=== PATIENT | female | born 1940 | race Caucasian/White ===

== ENCOUNTER 2021-05-08 15:50 | Inpatient (IN) | payer MEDICARE, OTHER, SELFPAY ==
[2021-05-08] VITALS (12 sets, daily range): BP systolic 108–165; BP diastolic 54–78; PULSE 74–109; RESP 16–24; TEMP 36.2; O2SAT 96–100; BMI 30.7; BMI 30.2
[2021-05-08 17:10] LABS: Add Manual Diff / Slide Review NO; Basophils Absolute Auto 0 /uL (0-100); Basophils Percent Auto 0.5 % (0-2); Eosinophils Absolute Auto 100 /uL (0-450); Eosinophils Percent Auto 0.5 % (2-4); Hematocrit 32.8 % (36-46); Hemoglobin 10.7 g/dL (12.0-16.0); Lymphocytes Absolute Auto 1000 /uL (1100-4500); Lymphocytes Percent Auto 10.7 % (25-40); Mean Corpuscular HGB Conc 32.7 % (30-36); Mean Corpuscular Hemoglobin 29.8 PG (26-34); Monocytes Absolute Auto 200 /uL (0-900); Monocytes Percent Auto 2.5 % (3-14); Neutrophils Absolute Auto 8100 /uL (1500-7000); Neutrophils Percent Auto 85.8 % (50-75); Platelet Count 285 X10^3/uL (150-400); Red Cell Distribution Width 14.1 % (11.6-14.8); White Blood Cell Count 9.5 X10^3/uL (4.5-11.0)
[2021-05-08 17:23] LABS: Alanine Aminotransferase 14 IU/L (<35); Albumin 3.5 g/dL (3.5-5.0); Albumin Globulin Ratio 1.3 (1.0-2.8); Alkaline Phosphatase 62 U/L (38-126); Aspartate Aminotransferase 22 IU/L (14-36); BUN Creatinine Ratio 45.2 (6-22); Bilirubin Total 0.3 mg/dL (0.2-1.3); Blood Urea Nitrogen 33 mg/dL (7-17); Calcium 8.7 mg/dL (8.4-10.2); Carbon Dioxide 26 mmol/L (22-32); Chloride 107 mmol/L (98-107); Estimated Glomerular Filt Rate > 60.0 mL/min (>60); Globulin 2.6 g/dL (1.7-4.1); Glucose 150 mg/dL (80-110); HEMOLYSIS < 15 (0-50); Potassium 4.6 mmol/L (3.4-5.1); Sodium 138 mmol/L (137-145); Total Protein 6.1 g/dL (6.3-8.2)
--- NOTE | 2021-05-08 20:12 | ED.GIBLEED ---
HPI - GI Bleed General Chief complaint: GI Bleed Stated complaint: DIARRHEA STOMACH PAIN Time Seen by Provider: 05/08/21 20:12 Source: patient Mode of arrival: Ambulatory History of Present Illness HPI Narrative: 81-year-old woman with history of paroxysmal atrial fibrillation anticoagulated on warfarin, hypertension, hypoglycemia history of a Zen fundoplication no prior history of GI bleeding presents complaining of nausea with no emesis(unable to vomit after the Zen procedure) with black tar E stool starting last night becoming more frequent. She has a distant history of Clostridium difficile and lives with a friend who is helping a next door neighbor who had diarrhea and she is convinced that she has Clostridium difficile. She describes mild abdominal discomfort but no overt pain. She is a bit dizzy when she stands up but not complaining of dyspnea. She notes that she is going in an out of her paroxysmal atrial fibrillation throughout the course of the day. Is having no headaches and no lower extremity edema. Related Data Home Medications Medication Instructions Recorded Confirmed Imodium 2 tab PO DAILY 05/08/21 05/08/21 acetaminophen 500 mg tablet 1,000 mg PO DAILY 05/08/21 05/08/21 alprazolam 0.5 mg tablet 0.5 mg PO QD-QID 05/08/21 05/08/21 digoxin 125 mcg (0.125 mg) tablet 125 mcg PO PRN PRN 05/08/21 05/08/21 duloxetine 60 mg capsule,delayed 60 mg PO DAILY 05/08/21 05/08/21 release esterified 1 tab PO QTUTHSU 05/08/21 05/08/21 estrogens-methyltestosterone 0.625 mg-1.25 mg tablet hydromorphone 2 mg tablet 2 mg PO PRN PRN 05/08/21 05/08/21 lisinopril 10 mg tablet 10 mg PO DAILY 05/08/21 05/08/21 metoprolol tartrate 50 mg tablet 50 mg PO BID 05/08/21 05/08/21 warfarin 1 mg tablet 5 mg PO BEDTIME 05/08/21 05/08/21 Allergies Allergy/AdvReac Type Severity Reaction Status Date / Time codeine AdvReac Vomiting Verified 05/09/21 10:25 latex AdvReac Rash Verified 05/09/21 10:25 levofloxacin [From Levaquin] AdvReac Hallucinati Verified 05/09/21 10:25 ng Review of Systems Review of Systems Narrative: Remainder of complete review of systems is otherwise unremarkable except for that included in the HPI. Patient History Medical History (Updated 05/09/21 @ 17:59 by Deandra Perry MD) Atrial fibrillation Chronic anticoagulation COVID-19 virus infection Essential hypertension GI bleed Hypoglycemia Surgical History History of bilateral hip arthroplasty History of bilateral knee arthroplasty Family History Mother Depression Father Heart attack Social History household members: friend(s) and other Smoking Status: Never smoker alcohol intake: never Smoking Status: Never smoker alcohol intake frequency: 0-2 drinks per day Substance Use Type: does not use Exam Initial Vital Signs Initial Vital Signs: Vital Signs Temperature 97.2 F L 05/08/21 16:07 Pulse Rate 88 05/08/21 16:07 Respiratory Rate 18 05/08/21 16:07 Blood Pressure 161/78 H 05/08/21 16:07 Pulse Oximetry 98 05/08/21 16:07 General: Healthy appearing, in no acute distress. Able to give a complete and coherent history. Well-nourished well-developed HEENT: Moist mucous membranes, normal sclera with reactive pupils, mildly pale Neck: No JVD, supple Respiratory: Lungs are clear to auscultation, no wheezing no rales no rhonchi. Full and symmetrical air movement Cardiac: Regular rate and rhythm, soft 3/6 murmur, Abdomen: Soft, mild epigastric tenderness without rebound or guarding, hyperactive bowel tones and no flank pain. Rectal exam: A dark black to melanotic stool grossly guaiac positive Skin: Warm and dry, no rashes Neurologic: Grossly neurologically intact with no obvious asymmetries or abnormalities Extremities: No trauma, well perfused Psych: Cooperative, appropriate insight and affect Course Orders Ordered: Alprazolam (Alprazolam 0.5 Mg Tablet) 0.5 mg PO Q6H PRN PRN Reason: Anxiety Duloxetine HCl (Duloxetine 30 Mg Capsule) 60 mg PO DAILY ELIANE Sodium Chloride (Normal Saline 0.9%) 1,000 mls @ 1,000 mls/hr IV BOLUS PRN PRN Reason: Fluid replacement Last Infusion: 05/08/21 22:25 Dose: 0 mls/hr Documented by: Admin: 05/08/21 21:35 Dose: 1,000 mls/hr Documented by: ASHLEIGH Metoprolol Tartrate (Metoprolol Ir 50 Mg Tablet) 25 mg PO BID [facility] Naloxone HCl (Naloxone 0.4 Mg/Ml Vial) 0.2 mg IV Q2MIN PRN PRN Reason: Opiate Reversal Ondansetron HCl (Ondansetron 4 Mg/2 Ml Inj) 4 mg IV Q4HR PRN PRN Reason: Nausea And Vomiting Pantoprazole Sodium (Pantoprazole 40 Mg Vial) 40 mg IV BID [facility] Last Admin: 05/09/21 09:49 Dose: 40 mg Documented by: LULY Discontinued Medications Acetaminophen (Acetaminophen 325 Mg Tablet) 650 mg PO Q6HR PRN PRN Reason: Fever/Mild Pain (1-3) Digoxin (Digoxin 500 Mcg/2 Ml Ampul) 250 mcg IV NOW ONE Stop: 05/09/21 08:57 Last Admin: 05/09/21 09:56 Dose: 250 mcg Documented by: LULY Diphenhydramine HCl (Diphenhydramine 50 Mg/Ml Vial) 25 mg IV NOW PRN PRN Reason: Insomnia Last Admin: 05/09/21 03:05 Dose: 25 mg Documented by: JIMBO Epinephrine HCl (Epinephrine 1 Mg/Ml) 1 mg SUBCUT NOW ONE Stop: 05/09/21 11:49 Last Admin: 05/09/21 11:50 Dose: 1 mg Documented by: MILLER Hydromorphone HCl (Hydromorphone 1 Mg Inj) 1 mg IV Q4H PRN PRN Reason: Pain, Moderate (4-6) Hydromorphone HCl (Hydromorphone 1 Mg Inj) 0.5 mg IV Q4H PRN PRN Reason: Pain, Moderate (4-6) Last Admin: 05/09/21 05:11 Dose: 0.5 mg Documented by: JIMBO Sodium Chloride (Normal Saline 0.9%) 1,000 mls @ 100 mls/hr IV CONT ELIANE Last Admin: 05/08/21 22:46 Dose: 100 mls/hr Documented by: GALILEO Prothrombin Complex Concent ( Human) 2,000 unit/Miscellaneous 80 mls @ 612.72 mls/hr IV NOW ONE; Protocol Stop: 05/09/21 09:28 Last Infusion: 05/09/21 09:56 Dose: 3 unit/kg/min, 612.7 mls/hr Documented by: Admin: 05/09/21 09:48 Dose: 3 unit/kg/min, 612.72 mls/hr Documented by: LULY Lactated Ringer's (Lactated Ringers) 1,000 mls @ 42 mls/hr IV NOW ONE Stop: 05/10/21 10:39 Last Admin: 05/09/21 10:51 Dose: 42 mls/hr Documented by: MATEUS Lorazepam (Lorazepam 2 Mg/Ml Inj) 0.5 mg IV NOW ONE Stop: 05/09/21 09:10 Last Admin: 05/09/21 09:48 Dose: 0.5 mg Documented by: LULY Ondansetron HCl (Ondansetron 4 Mg/2 Ml Inj) 4 mg IV Q8HR PRN PRN Reason: Nausea And Vomiting Last Admin: 05/09/21 12:01 Dose: 4 mg Documented by: MANDA Ondansetron HCl (Ondansetron 4 Mg/2 Ml Inj) 4 mg IV NOW ONE Stop: 05/09/21 15:13 Pantoprazole Sodium (Pantoprazole 40 Mg Vial) 80 mg IV NOW ONE Stop: 05/08/21 20:35 Last Admin: 05/08/21 21:34 Dose: 80 mg Documented by: CTRCONSTANTIN Phytonadione (Phytonadione (Vit K1) 5 Mg Tablet) 10 mg PO NOW ONE Stop: 05/08/21 22:02 Last Admin: 05/08/21 22:28 Dose: 10 mg Documented by: CTRCONSTANTIN Vital Signs Vital signs: Vital Signs - 8 hr 05/08/21 16:07 Temperature 97.2 F L Pulse Rate 88 Respiratory Rate 18 Blood Pressure 161/78 H Pulse Oximetry 98 MDM - GI Bleed Lab Data Result diagrams: 05/09/21 14:54 05/09/21 04:11 Labs: Lab Results 05/08/21 05/08/21 05/08/21 Range/Units 16:54 16:54 16:54 WBC 9.5 (4.5-11.0) X10^3/uL RBC 3.60 L (4.0-5.2) X10^6/uL Hgb 10.7 L (12.0-16.0) g/dL Hct 32.8 L (36-46) % MCV 91.0 (80-100) fL MCH 29.8 (26-34) PG MCHC 32.7 (30-36) % RDW 14.1 (11.6-14.8) % Plt Count 285 (150-400) X10^3/uL Neut % (Auto) 85.8 H (50-75) % Lymph % (Auto) 10.7 L (25-40) % [place] % (Auto) 2.5 L (3-14) % Eos % (Auto) 0.5 L (2-4) % Baso % (Auto) 0.5 (0-2) % Neut # (Auto) 8100 H (4382-2486) /uL Lymph # (Auto) 1000 L (2172-8833) /uL [place] # (Auto) 200 (0-900) /uL Eos # (Auto) 100 (0-450) /uL Baso # (Auto) 0 (0-100) /uL PT (10.1-12.7) SECONDS INR (0.9-1.3) Sodium 138 (137-145) mmol/L Potassium 4.6 (3.4-5.1) mmol/L Chloride 107 (98-107) mmol/L Carbon Dioxide 26 (22-32) mmol/L BUN 33 H (7-17) mg/dL Creatinine 0.73 (0.52-1.04) mg/dL Estimated GFR > 60.0 (>60) mL/min BUN/Creatinine Ratio 45.2 H (6-22) Glucose 150 H (80-110) mg/dL Calcium 8.7 (8.4-10.2) mg/dL Magnesium 2.0 (1.6-2.3) mg/dL Total Bilirubin 0.3 (0.2-1.3) mg/dL AST 22 (14-36) IU/L ALT 14 (<35) IU/L Alkaline Phosphatase 62 (38-126) U/L Troponin I (0.01-0.034) ng/mL Total Protein 6.1 L (6.3-8.2) g/dL Albumin 3.5 (3.5-5.0) g/dL Globulin 2.6 (1.7-4.1) g/dL Albumin/Globulin Ratio 1.3 (1.0-2.8) SARS-CoV-2 (PCR) (Negative) Blood Type Antibody Screen Crossmatch 05/08/21 05/08/21 05/08/21 Range/Units 16:54 16:54 20:42 WBC (4.5-11.0) X10^3/uL RBC (4.0-5.2) X10^6/uL Hgb 9.9 L (12.0-16.0) g/dL Hct 30.8 L (36-46) % MCV (80-100) fL MCH (26-34) PG MCHC (30-36) % RDW (11.6-14.8) % Plt Count (150-400) X10^3/uL Neut % (Auto) (50-75) % Lymph % (Auto) (25-40) % [place] % (Auto) (3-14) % Eos % (Auto) (2-4) % Baso % (Auto) (0-2) % Neut # (Auto) (5915-6815) /uL Lymph # (Auto) (2227-2625) /uL [place] # (Auto) (0-900) /uL Eos # (Auto) (0-450) /uL Baso # (Auto) (0-100) /uL PT 39.7 H (10.1-12.7) SECONDS INR 3.4 H (0.9-1.3) Sodium (137-145) mmol/L Potassium (3.4-5.1) mmol/L Chloride (98-107) mmol/L Carbon Dioxide (22-32) mmol/L BUN (7-17) mg/dL Creatinine (0.52-1.04) mg/dL Estimated GFR (>60) mL/min BUN/Creatinine Ratio (6-22) Glucose (80-110) mg/dL Calcium (8.4-10.2) mg/dL Magnesium (1.6-2.3) mg/dL Total Bilirubin (0.2-1.3) mg/dL AST (14-36) IU/L ALT (<35) IU/L Alkaline Phosphatase (38-126) U/L Troponin I < 0.012 (0.01-0.034) ng/mL Total Protein (6.3-8.2) g/dL Albumin (3.5-5.0) g/dL Globulin (1.7-4.1) g/dL Albumin/Globulin Ratio (1.0-2.8) SARS-CoV-2 (PCR) (Negative) Blood Type Antibody Screen Crossmatch 05/08/21 05/08/21 Range/Units 20:42 20:54 WBC (4.5-11.0) X10^3/uL RBC (4.0-5.2) X10^6/uL Hgb (12.0-16.0) g/dL Hct (36-46) % MCV (80-100) fL MCH (26-34) PG MCHC (30-36) % RDW (11.6-14.8) % Plt Count (150-400) X10^3/uL Neut % (Auto) (50-75) % Lymph % (Auto) (25-40) % [place] % (Auto) (3-14) % Eos % (Auto) (2-4) % Baso % (Auto) (0-2) % Neut # (Auto) (8882-6737) /uL Lymph # (Auto) (6346-8992) /uL [place] # (Auto) (0-900) /uL Eos # (Auto) (0-450) /uL Baso # (Auto) (0-100) /uL PT (10.1-12.7) SECONDS INR (0.9-1.3) Sodium (137-145) mmol/L Potassium (3.4-5.1) mmol/L Chloride (98-107) mmol/L Carbon Dioxide (22-32) mmol/L BUN (7-17) mg/dL Creatinine (0.52-1.04) mg/dL Estimated GFR (>60) mL/min BUN/Creatinine Ratio (6-22) Glucose (80-110) mg/dL Calcium (8.4-10.2) mg/dL Magnesium (1.6-2.3) mg/dL Total Bilirubin (0.2-1.3) mg/dL AST (14-36) IU/L ALT (<35) IU/L Alkaline Phosphatase (38-126) U/L Troponin I (0.01-0.034) ng/mL Total Protein (6.3-8.2) g/dL Albumin (3.5-5.0) g/dL Globulin (1.7-4.1) g/dL Albumin/Globulin Ratio (1.0-2.8) SARS-CoV-2 (PCR) Negative (Negative) Blood Type O Positive Antibody Screen Negative Crossmatch See Detail Point of Care Testing Glucose POC 189 MDM Narrative Medical decision making narrative: 81-year-old woman with paroxysmal atrial fibrillation post Zen fundoplication on warfarin with 2-3 days of increasing black starry diarrhea mild dizziness and increasing episodes of paroxysmal atrial fibrillation today. She is hemodynamically stable and not complaining of chest pain or significant abdominal pain. No prior history of GI bleeding. She is showing signs of rather brisk upper GI bleeding with black stools increasing to maroon-colored stools. Given a L of fluid initial H&H (without earlier comparison available) was 10.7 and 32.8. Prior to significant fluid resuscitation she dropped to 9.9/30.8. In light of suspected continue upper GI bleed a unit of crossmatch blood is transfused. Care is reviewed with the hospitalist as well as general surgeon. Will continue with fluid resuscitation. She is given oral potassium and FFP to reverse her INR of 3.4 and she remains hemodynamically stable and cognitively alert and appropriate. She is transfer to the floor for further care and definitive diagnosis. Critical Care Time Critical Care Time Critical Care Time: Yes Total Critical Care Time: 31 Attestation: Critical care time is separate from other billable procedures. There is a high probability of a significant, sudden or life-threatening deterioration that requires my full and direct attention, intervention and personal management. This critical care time includes consultation with family and other consulting doctors, review of records, and interpretation of data from labs, EKGs and imaging as well as managements of upper GI hemorrhage with uncertain outcome as well as anticoagulation with paroxysmal atrial fibrillation Discharge Plan Departure Patient Disposition: Admitted As Inpatient Clinical Impression: GI bleed, Paroxysmal A-fib Admit Date/Time: 05/08/21 22:03 Admit Provider: Genia Malone
[2021-05-08 21:15] LABS: INR 3.4 (0.9-1.3); Prothrombin Time 39.7 SECONDS (10.1-12.7)
[2021-05-08 21:19] LABS: COVID19 -Nasal RAPID Negative (Negative)
[2021-05-08 21:28] LABS: Hematocrit 30.8 % (36-46); Hemoglobin 9.9 g/dL (12.0-16.0)
[2021-05-08 21:33] LABS: Troponin I < 0.012 ng/mL (0.01-0.034)
[2021-05-08] MEDS: PANTOPRAZOLE 40 MG VIAL 80 MG IV (21:34)
[2021-05-08] MEDS: SODIUM CHLORIDE 0.9% 1,000 ML 1000 ML IV (21:35)
[2021-05-08] MEDS: PHYTONADIONE (VIT K1) 5 MG TABLET 10 MG PO (22:28)
[2021-05-08] MEDS: SODIUM CHLORIDE 0.9% 1,000 ML 100 ML IV (22:46)
--- NOTE | 2021-05-08 23:59 | TAR.TRANSNT ---
2355 05/08/2021- PRBC transfusion started as ordered. !st unit started just outside start window due to patient asking questions reguarding blood before signing consent. consent signed and blood started.
[2021-05-09] VITALS (28 sets, daily range): BP systolic 67–151; BP diastolic 37–87; PULSE 78–150; RESP 11–18; TEMP 36.3–37.4; O2SAT 80–100; BMI 30.2
[2021-05-09 02:38] LABS: Clostridium Difficile Tox PCR Negative for C. diff (Negative)
--- NOTE | 2021-05-09 02:44 | P.HP_ITS ---
History of Present Illness History of Present Illness Date Patient Seen: 05/08/21 Time Patient Seen: 22:18 Chief complaint: DIARRHEA STOMACH PAIN Narrative: Samreen Tellez is an 81-year-old female with a medical history of atrial fibrillation on coumadin, essential hypertension, hypoglycemia and COVID infection May of 2019 who presented to the ED after having 3 days of progressively worsening exacerbation atrial fibrillation,episodes of seeing stars whenever she moved her head quickly and felt lightheaded, and acute on set shortness of breath during her regular activity of walks [place] her [place] property. Today she had a BM of black tarry stool which eventually led her into the ED, she further had melena in the ED. The patient has had no further black tarry stools upon admit. Upon admit examination patient is resting comfortably in bed, is hemodynamically stable and in no distress. Patient denies currently chest pain, shortness of breath, abdominal pain, nausea, vomiting, diarrhea, chills, fever, body aches, headache, changes in vision, weakness, numbness, tingling, hematuria, urinary symptoms, hematemesis, recent illness injury or trauma. Patient denies any chronic use of NSAIDs or alcohol. Patient is on Coumadin 5 mg x 6 days a week and 4 mg on Friday, she reports that her last PT INR was approximately 1 month ago and was reported to be within normal limits. Patient denies any personal or family history of any bleeding disorders. Patient denies any history of any GI disorders GERD, or GI bleeding. Patient's vitals upon admit are stable temp 97.2? mildly hypertensive with a BP of 161/78, HR 88, O2 saturation 98% on room air. Patient's initial hemoglobin and hematocrit at 4:54 p.m. was 10.7 and 32.8, repeated at 8:42 p.m. 9.9 and 30.8. Patient did have a neutrophils of 8100 but no white count. Patient's BUN 33, glucose 150, total protein 6.1, patient's PT 39.7, patient's INR 3.4, patient was guaiac positive. Patient's EKG demonstrated sinus rhythm with a rate of 75, possible lateral infarct undetermined. Patient was typed and crossed in the ED O-positive, 1 unit packed red blood cells was ordered for the patient. Dr. Cannon was consulted in the ED. Patient admitted for gastrointestinal hemorrhage. Patient History Medical History (Updated 05/09/21 @ 03:01 by FREDA Mcleod) Atrial fibrillation Chronic anticoagulation COVID-19 virus infection Essential hypertension Hypoglycemia Surgical History (Updated 05/09/21 @ 03:01 by FREDA Mcleod) History of bilateral hip arthroplasty History of bilateral knee arthroplasty Family & Social History Family History Mother Depression Father Heart attack Social History: household members friend(s),other room mate , 2018 Prior Living Arrangements House Safety & Behavioral: Feels Safe in Current Yes Environment Been Physically Hurt or No Threatened By a Person Suicidal Ideation Description None Suicide Plan Description No Plan Tobacco & Substance use: Smoking Status Never smoker alcohol intake never alcohol intake frequency 0-2 drinks per day Substance Use Type does not use Meds Home Medications and Allergies Home Medications Medication Instructions Recorded Confirmed Type Imodium 2 tab PO DAILY 05/08/21 05/08/21 History acetaminophen 500 mg tablet 1,000 mg PO DAILY 05/08/21 05/08/21 History alprazolam 0.5 mg tablet 0.5 mg PO QD-QID 05/08/21 05/08/21 History digoxin 125 mcg (0.125 mg) tablet 125 mcg PO PRN PRN 05/08/21 05/08/21 History duloxetine 60 mg capsule,delayed 60 mg PO DAILY 05/08/21 05/08/21 History release esterified 1 tab PO QTUTHSU 05/08/21 05/08/21 History estrogens-methyltestosterone 0.625 mg-1.25 mg tablet hydromorphone 2 mg tablet 2 mg PO PRN PRN 05/08/21 05/08/21 History lisinopril 10 mg tablet 10 mg PO DAILY 05/08/21 05/08/21 History metoprolol tartrate 50 mg tablet 50 mg PO BID 05/08/21 05/08/21 History warfarin 1 mg tablet 5 mg PO BEDTIME 05/08/21 05/08/21 History Allergies Allergy/AdvReac Type Severity Reaction Status Date / Time codeine AdvReac Vomiting Verified 05/08/21 16:24 latex AdvReac Rash Verified 05/08/21 16:24 levofloxacin [From Levaquin] AdvReac Hallucinati Verified 05/08/21 16:24 ng Review of Systems Review of Systems Narrative: All 12 point systems reviewed with the patient and are negative except otherwise documented. Exam Vital Signs (past 8 hours): - 05/08/21 19:41 05/08/21 20:00 05/08/21 20:30 Temperature Pulse Rate 74 75 80 Pulse Rate [Orthostatic Lying] Pulse Rate [Orthostatic Sitting] Pulse Rate [Orthostatic Standing] Respiratory Rate 18 23 23 Blood Pressure 108/54 L Blood Pressure [Orthostatic Lying] Blood Pressure [Orthostatic Sitting] Blood Pressure [Orthostatic Standing] Pulse Oximetry 97 98 99 05/08/21 20:31 05/08/21 21:00 05/08/21 21:30 Temperature Pulse Rate 79 76 86 Pulse Rate [Orthostatic Lying] Pulse Rate [Orthostatic Sitting] Pulse Rate [Orthostatic Standing] Respiratory Rate 21 24 Blood Pressure 165/67 H 150/66 H Blood Pressure [Orthostatic Lying] Blood Pressure [Orthostatic Sitting] Blood Pressure [Orthostatic Standing] Pulse Oximetry 99 100 05/08/21 21:45 05/08/21 22:00 05/08/21 22:35 Temperature 97.1 F L Pulse Rate 77 78 97 H Pulse Rate [Orthostatic Lying] 83 Pulse Rate [Orthostatic Sitting] 97 H Pulse Rate [Orthostatic Standing] 109 H Respiratory Rate 23 16 18 Blood Pressure 133/63 131/63 146/61 H Blood Pressure [Orthostatic Lying] 158/64 H Blood Pressure [Orthostatic Sitting] 146/61 H Blood Pressure [Orthostatic Standing] 124/72 Pulse Oximetry 99 100 100 05/08/21 23:50 05/09/21 00:05 05/09/21 00:20 Temperature 97.1 F L 97.9 F Pulse Rate 83 83 98 H Pulse Rate [Orthostatic Lying] Pulse Rate [Orthostatic Sitting] Pulse Rate [Orthostatic Standing] Respiratory Rate 18 18 18 Blood Pressure 124/72 98/77 98/77 Blood Pressure [Orthostatic Lying] Blood Pressure [Orthostatic Sitting] Blood Pressure [Orthostatic Standing] Pulse Oximetry 99 05/09/21 01:00 Temperature Pulse Rate 98 H Pulse Rate [Orthostatic Lying] Pulse Rate [Orthostatic Sitting] Pulse Rate [Orthostatic Standing] Respiratory Rate 18 Blood Pressure Blood Pressure [Orthostatic Lying] Blood Pressure [Orthostatic Sitting] Blood Pressure [Orthostatic Standing] Pulse Oximetry 99 Oxygen Delivery Method Room Air Oxygen Flow Rate 0 Narrative Exam Narrative: General: Patient is a well-developed, well-nourished obese elderly in no distress at this time. HEENT: Normocephalic, atraumatic, extraocular muscles intact, oral pharynx is clear and mucous membranes are moist. Neck is supple and symmetric, trachea is midline, no adenopathy, no thyroid enlargement, nontender, no masses palpated. Negative for JVD Chest: Normal AP diameter and contour without kyphoscoliosis, no nasal flaring, retractions, or tachypneic labored Lungs: Auscultation of all lung preciado are clear without adventitious sounds, wheezes, rhonchi, or rales. Cardio: S1 & S2 with regular rate and rhythm without murmur, rubs, or gallops, no carotid bruit, no cardiac pulsations present. Abdomen: Soft nontender, negative for organomegaly, or masses. Bowel sounds are present in all 4 quadrants without guarding or rebound, no CVA tenderness. Musculoskeletal: Muscle strength and tone are equal within normal limits, no deformity, crepitus, effusions, cyanosis, clubbing or edema present. Full range of motion intact radial and pedal pulses are normal. Skin: Warm dry and intact without rashes, ulcerations or petechiae. Neuro: Alert and orientated x3, strength is +5/5 in all extremities, sensation to touch intact, no gross deficits noted of cranial nerves. Psych: Patient has a well-kept appearance, appropriate affect, mental status attitude thought context and judgment are appropriate for age. Objective Labs Result Diagrams: 05/08/21 20:42 05/08/21 16:54 Labs: Laboratory Results - last 24 hr 05/08/21 05/08/21 05/08/21 16:54 16:54 16:54 WBC 9.5 RBC 3.60 L Hgb 10.7 L Hct 32.8 L MCV 91.0 MCH 29.8 MCHC 32.7 RDW 14.1 Plt Count 285 Neut % (Auto) 85.8 H Lymph % (Auto) 10.7 L [place] % (Auto) 2.5 L Eos % (Auto) 0.5 L Baso % (Auto) 0.5 Neut # (Auto) 8100 H Lymph # (Auto) 1000 L [place] # (Auto) 200 Eos # (Auto) 100 Baso # (Auto) 0 PT INR Sodium 138 Potassium 4.6 Chloride 107 Carbon Dioxide 26 BUN 33 H Creatinine 0.73 Estimated GFR > 60.0 BUN/Creatinine Ratio 45.2 H Glucose 150 H Calcium 8.7 Magnesium 2.0 Total Bilirubin 0.3 AST 22 ALT 14 Alkaline Phosphatase 62 Troponin I Total Protein 6.1 L Albumin 3.5 Globulin 2.6 Albumin/Globulin Ratio 1.3 C. difficile Tox (PCR) SARS-CoV-2 (PCR) Blood Type Antibody Screen Crossmatch 05/08/21 05/08/21 05/08/21 16:54 16:54 20:42 WBC RBC Hgb 9.9 L Hct 30.8 L MCV MCH MCHC RDW Plt Count Neut % (Auto) Lymph % (Auto) [place] % (Auto) Eos % (Auto) Baso % (Auto) Neut # (Auto) Lymph # (Auto) [place] # (Auto) Eos # (Auto) Baso # (Auto) PT 39.7 H INR 3.4 H Sodium Potassium Chloride Carbon Dioxide BUN Creatinine Estimated GFR BUN/Creatinine Ratio Glucose Calcium Magnesium Total Bilirubin AST ALT Alkaline Phosphatase Troponin I < 0.012 Total Protein Albumin Globulin Albumin/Globulin Ratio C. difficile Tox (PCR) SARS-CoV-2 (PCR) Blood Type Antibody Screen Crossmatch 05/08/21 05/08/21 05/09/21 20:42 20:54 00:55 WBC RBC Hgb Hct MCV MCH MCHC RDW Plt Count Neut % (Auto) Lymph % (Auto) [place] % (Auto) Eos % (Auto) Baso % (Auto) Neut # (Auto) Lymph # (Auto) [place] # (Auto) Eos # (Auto) Baso # (Auto) PT INR Sodium Potassium Chloride Carbon Dioxide BUN Creatinine Estimated GFR BUN/Creatinine Ratio Glucose Calcium Magnesium Total Bilirubin AST ALT Alkaline Phosphatase Troponin I Total Protein Albumin Globulin Albumin/Globulin Ratio C. difficile Tox (PCR) Negative for c. diff SARS-CoV-2 (PCR) Negative Blood Type O Positive Antibody Screen Negative Crossmatch See Detail Assessment & Plan Assessment & Plan narrative: Samreen Tellez is an 81-year-old female with a medical history of atrial fibrillation on coumadin, essential hypertension, hypoglycemia and COVID infection May of 2019 who presented to the ED after having 3 days of progressively worsening atrial fibrillation, lightheaded, and shortness of breath. Today she had a BM of black tarry stool and melena in the ED. Patient is on chronic anticoagulation with Coumadin due to atrial fibrillation, patient was admitted for gastrointestinal bleeding. 1. Gastrointestinal hemorrhage, black tarry stool/melena, upper GI, acute, present on admission -patient had a supratherapeutic INR of 3.4, initiated in ED: vitamin K , FFP, 80 mg IV Protonix, 1 unit PRBC -Dr. Cannon consult Tomorrow -NPO -initial H&H 10.7/32.8 @1654, repeat 9.9/30.8 @2042 -Will repeat H/H 30min after 1st unit. -Protonix 40 mg IV b.i.d. -repeat PT/INR/PTT in a.m. -NS100 cc/HR -Coumadin Held -Stop 1000 mg of acetaminophen and provide pt. education. -H pylori and C diff -diarrhea continues 2. Atrial fibrillation, chronic, present on admission -patient is placed on telemedicine, patient has been in sinus rhythm -continue metoprolol 3. Essential hypertension, acute on chronic, present on admission -continue lisinopril, digoxin 4. Depression with anxiety, acute on chronic, present on admission -continue duloxetine 5. Obesity as evidence by BMI of 30.3, acute on chronic, present on admission -a dietary consult not placed at this time due to acute illness. Code status: Full Surrogate decision maker: [employer] Work[employer] Ivon Manjarrez COVID PCR: Negative COVID vaccination: Unvaccinated DVT/VTE prophylaxis: SCDs only Disposition: Patient admitted for gastrointestinal hemorrhage, expected length of stay greater than 2 midnights. I have utilized all available immediate resources to obtain, update, or review the patient's current medications. I confirmed that the patient's advanced care plan is present, Code status is documented and/or surrogate decision maker is listed in the patient's medical record. Time Spent With Patient Critical Care time: I spent a total of [] minutes of critical care time on this patient's care today; this time is exclusive of procedural time. Quality VTE Deep Vein Thrombosis/Pulmonary Embolism Present on Admission: No
[2021-05-09] MEDS: diphenhydrAMINE 50 MG/ML VIAL 25 MG IV (03:05)
[2021-05-09 04:23] LABS: Hematocrit 27.4 % (36-46); Hemoglobin 8.9 g/dL (12.0-16.0); INR 3.3 (0.9-1.3); Prothrombin Time 37.9 SECONDS (10.1-12.7)
[2021-05-09 04:26] LABS: PTT Partial Thromboplastin Tim 42 SECONDS (26.4-36.2)
[2021-05-09 04:28] LABS: BUN Creatinine Ratio 39.4 (6-22); Blood Urea Nitrogen 28 mg/dL (7-17); Calcium 8.2 mg/dL (8.4-10.2); Carbon Dioxide 27 mmol/L (22-32); Chloride 109 mmol/L (98-107); Estimated Glomerular Filt Rate > 60.0 mL/min (>60); Glucose 163 mg/dL (80-110); HEMOLYSIS < 15 (0-50); Sodium 135 mmol/L (137-145)
[2021-05-09] MEDS: HYDROMORPHONE 1 MG INJ 0.5 MG IV (05:11)
--- NOTE | 2021-05-09 07:49 | PC.NURSE ---
Addendum entered by Daisy Long R.N. 05/09/21 08:00: Patient requested pain medication for hip pain. Patient given dilaudid IV 0.5mg at 0511. Within 1minuite patient stated she felt dizzy, then sweaty, then the black was coming. Put patient in [facility] and started to check vitals. BP was 76/37 with pulse at 101. put wet cold wash cloth on patient head and called hospitalist Faisal. TEGAN Malone came to patient room. 500cc bolus of NS given over 30 minutes. monitored BP with Faisal in room for approx 30 minutes. BPs started to stablized. Patient reported starting to feel normal. Vital sign machine set to check BP Q15min until stable. see vitals signs for numbers. will continue to monitor patient. Dilaudid d/c'ed. safety measures in place. bed alarm activated. Original Note: Admit/ NOC Shift Note- Patient arrived to room via stretcher at 2235 from ER. Patient alert and oriented and able to make needs known to staff. Admit questions done, medications reviewed, physical assessment completed, and skin check done. Patient oriented to bed and bed controls, room, lights, phone, bathroom/BSC, and call [place]/tv remote. Tele monitor placed. SCD's placed. Blood transfusion consent form signed. 1 unit PRBC's given and 1 Unit FFP's started. Safety measures in place. Patient agrees to call for assistance. Bed alarm activated. Call [place] and phone within reach. will continue to monitor.
--- NOTE | 2021-05-09 07:57 | TAR.TRANSNT ---
0500 05/09/21- 1unit FFP's started as ordered. unable to scan product number or scan for expiration. Expiration date is 05/09/2021 @ 6986. Produce checked and rechecked with another RN.
[2021-05-09 08:49] LABS: Hematocrit 22.1 % (36-46); Hemoglobin 7.2 g/dL (12.0-16.0)
[2021-05-09 09:00] LABS: INR 2.5 (0.9-1.3)
[2021-05-09] MEDS: LORazepam 2 MG/ML INJ 0.5 MG IV (09:48)
[2021-05-09] MEDS: PROTHROMBIN CPLX(PCC)4FACT 2,000 UNIT in ISOOSMOTIC VEHICLE 0 ML 612.72 ML IV (09:48)
[2021-05-09] MEDS: PANTOPRAZOLE 40 MG VIAL IV ×2 (09:49→20:18)
[2021-05-09] MEDS: DIGOXIN 500 MCG/2 ML AMPUL 250 MCG IV (09:56)
[2021-05-09] MEDS: LACTATED RINGERS 1,000 ML 42 ML IV (10:51)
--- NOTE | 2021-05-09 11:01 | PM.CN ---
History of Present Illness Consult details Date Patient Seen: 05/09/21 Time Patient Seen: 11:03 Chief complaint: DIARRHEA STOMACH PAIN Narrative: 81-year-old woman anticoagulated with warfarin for atrial fibrillation admitted 05/08/21 for abdominal pain and GI bleed. Reports epigastric discomfort associated melanotic stools, guiac positive. No emesis history of hiatal hernia repair. Initial Hct 32 now 22 after 2 units PRBCS, INR 3.4 at admission now 2.5 after 1 FFP and Vit K. Rapid response called early this AM for hypotension 90/50 with associated tachycardia however she is in atrial fibrilation. No history of previous GI bleed. Meds Home Medications and Allergies Home Medications Medication Instructions Recorded Confirmed Type Imodium 2 tab PO DAILY 05/08/21 05/08/21 History acetaminophen 500 mg tablet 1,000 mg PO DAILY 05/08/21 05/08/21 History alprazolam 0.5 mg tablet 0.5 mg PO QD-QID 05/08/21 05/08/21 History digoxin 125 mcg (0.125 mg) tablet 125 mcg PO PRN PRN 05/08/21 05/08/21 History duloxetine 60 mg capsule,delayed 60 mg PO DAILY 05/08/21 05/08/21 History release esterified 1 tab PO QTUTHSU 05/08/21 05/08/21 History estrogens-methyltestosterone 0.625 mg-1.25 mg tablet hydromorphone 2 mg tablet 2 mg PO PRN PRN 05/08/21 05/08/21 History lisinopril 10 mg tablet 10 mg PO DAILY 05/08/21 05/08/21 History metoprolol tartrate 50 mg tablet 50 mg PO BID 05/08/21 05/08/21 History warfarin 1 mg tablet 5 mg PO BEDTIME 05/08/21 05/08/21 History Allergies Allergy/AdvReac Type Severity Reaction Status Date / Time codeine AdvReac Vomiting Verified 05/09/21 10:25 latex AdvReac Rash Verified 05/09/21 10:25 levofloxacin [From Levaquin] AdvReac Hallucinati Verified 05/09/21 10:25 ng Exam Vital Signs (past 8 hours): - 05/09/21 03:25 05/09/21 04:30 05/09/21 04:45 Temperature 97.3 F L 97.3 F L Pulse Rate 94 H 94 H 84 Respiratory Rate 18 18 18 Blood Pressure 143/72 H 143/72 H Pulse Oximetry 99 99 05/09/21 04:50 05/09/21 05:05 05/09/21 05:15 Temperature 97.4 F L 98.0 F Pulse Rate 101 H 84 101 H Respiratory Rate 18 18 18 Blood Pressure 96/58 L 96/58 L 75/37 L Pulse Oximetry 05/09/21 05:20 05/09/21 05:25 05/09/21 05:40 Temperature Pulse Rate 92 H 86 Respiratory Rate Blood Pressure 67/42 L 92/52 L 102/49 L Pulse Oximetry 80 L 05/09/21 06:00 05/09/21 06:10 05/09/21 08:16 Temperature Pulse Rate 78 80 Respiratory Rate Blood Pressure 111/43 L 117/43 L Pulse Oximetry 96 05/09/21 09:18 05/09/21 10:52 Temperature 98.5 F 99.4 F Pulse Rate 126 H 150 H Respiratory Rate 16 15 Blood Pressure 111/66 132/82 Pulse Oximetry 100 Oxygen Delivery Method Room Air Oxygen Flow Rate 0 Narrative Exam Narrative: GENERAL: Obese female in no apparent distress HEENT: No scleral icterus CV: Regular rate, no peripheral edema LUNGS: No increased work of breathing. Patient speaks in full sentences without oxygen support. ABDOMEN: Soft, non-tender, non-distended NEURO: Nonfocal, normal strength throughout SKIN: Warm and dry Objective Labs Result Diagrams: 05/09/21 08:35 05/09/21 04:11 Labs: Laboratory Results - last 24 hr 05/08/21 05/08/21 05/08/21 16:54 16:54 16:54 WBC 9.5 RBC 3.60 L Hgb 10.7 L Hct 32.8 L MCV 91.0 MCH 29.8 MCHC 32.7 RDW 14.1 Plt Count 285 Neut % (Auto) 85.8 H Lymph % (Auto) 10.7 L [place] % (Auto) 2.5 L Eos % (Auto) 0.5 L Baso % (Auto) 0.5 Neut # (Auto) 8100 H Lymph # (Auto) 1000 L [place] # (Auto) 200 Eos # (Auto) 100 Baso # (Auto) 0 PT INR APTT Sodium 138 Potassium 4.6 Chloride 107 Carbon Dioxide 26 BUN 33 H Creatinine 0.73 Estimated GFR > 60.0 BUN/Creatinine Ratio 45.2 H Glucose 150 H Calcium 8.7 Magnesium 2.0 Total Bilirubin 0.3 AST 22 ALT 14 Alkaline Phosphatase 62 Troponin I Total Protein 6.1 L Albumin 3.5 Globulin 2.6 Albumin/Globulin Ratio 1.3 C. difficile Tox (PCR) SARS-CoV-2 (PCR) Blood Type Antibody Screen Crossmatch 05/08/21 05/08/21 05/08/21 16:54 16:54 20:42 WBC RBC Hgb 9.9 L Hct 30.8 L MCV MCH MCHC RDW Plt Count Neut % (Auto) Lymph % (Auto) [place] % (Auto) Eos % (Auto) Baso % (Auto) Neut # (Auto) Lymph # (Auto) [place] # (Auto) Eos # (Auto) Baso # (Auto) PT 39.7 H INR 3.4 H APTT Sodium Potassium Chloride Carbon Dioxide BUN Creatinine Estimated GFR BUN/Creatinine Ratio Glucose Calcium Magnesium Total Bilirubin AST ALT Alkaline Phosphatase Troponin I < 0.012 Total Protein Albumin Globulin Albumin/Globulin Ratio C. difficile Tox (PCR) SARS-CoV-2 (PCR) Blood Type Antibody Screen Crossmatch 05/08/21 05/08/21 05/09/21 20:42 20:54 00:55 WBC RBC Hgb Hct MCV MCH MCHC RDW Plt Count Neut % (Auto) Lymph % (Auto) [place] % (Auto) Eos % (Auto) Baso % (Auto) Neut # (Auto) Lymph # (Auto) [place] # (Auto) Eos # (Auto) Baso # (Auto) PT INR APTT Sodium Potassium Chloride Carbon Dioxide BUN Creatinine Estimated GFR BUN/Creatinine Ratio Glucose Calcium Magnesium Total Bilirubin AST ALT Alkaline Phosphatase Troponin I Total Protein Albumin Globulin Albumin/Globulin Ratio C. difficile Tox (PCR) Negative for c. diff SARS-CoV-2 (PCR) Negative Blood Type O Positive Antibody Screen Negative Crossmatch See Detail 05/09/21 05/09/21 05/09/21 04:11 04:11 04:11 WBC RBC Hgb 8.9 L Hct 27.4 L MCV MCH MCHC RDW Plt Count Neut % (Auto) Lymph % (Auto) [place] % (Auto) Eos % (Auto) Baso % (Auto) Neut # (Auto) Lymph # (Auto) [place] # (Auto) Eos # (Auto) Baso # (Auto) PT 37.9 H INR 3.3 H APTT 42 H Sodium 135 L Potassium 4.0 Chloride 109 H Carbon Dioxide 27 BUN 28 H Creatinine 0.71 Estimated GFR > 60.0 BUN/Creatinine Ratio 39.4 H Glucose 163 H Calcium 8.2 L Magnesium Total Bilirubin AST ALT Alkaline Phosphatase Troponin I Total Protein Albumin Globulin Albumin/Globulin Ratio C. difficile Tox (PCR) SARS-CoV-2 (PCR) Blood Type Antibody Screen Crossmatch 05/09/21 05/09/21 08:35 08:35 WBC RBC Hgb 7.2 L Hct 22.1 L MCV MCH MCHC RDW Plt Count Neut % (Auto) Lymph % (Auto) [place] % (Auto) Eos % (Auto) Baso % (Auto) Neut # (Auto) Lymph # (Auto) [place] # (Auto) Eos # (Auto) Baso # (Auto) PT 28.0 H D INR 2.5 H APTT Sodium Potassium Chloride Carbon Dioxide BUN Creatinine Estimated GFR BUN/Creatinine Ratio Glucose Calcium Magnesium Total Bilirubin AST ALT Alkaline Phosphatase Troponin I Total Protein Albumin Globulin Albumin/Globulin Ratio C. difficile Tox (PCR) SARS-CoV-2 (PCR) Blood Type Antibody Screen Crossmatch [facility] Medical History Atrial fibrillation Chronic anticoagulation COVID-19 virus infection Essential hypertension Hypoglycemia Surgical History History of bilateral hip arthroplasty History of bilateral knee arthroplasty Family History Mother Depression Father Heart attack Social History household members: friend(s) and other Tobacco & Substance Use Smoking Status: Never smoker alcohol intake: never Assessment & Plan Assessment and plan (1) GI bleed: Status: Acute Assessment & Plan narrative: 81-year-old woman anticoagulated with warfarin admitted with acute upper GI bleed and miild hemodynamic instability responsive to transfusion. Current hematocrit 22 after 2 units of packed red blood cells FFP and now Kcentra, INR 2.5 repeat is pending. Will proceed to the operating room for esophagoduodenoscopy. Technical details of the procedure were discussed with the patient. Procedural risks including bleeding intestinal perforation were discussed. Her questions have been answered she is in agreement with this plan. Time Spent With Patient Critical Care time: I spent a total of [] minutes of critical care time on this patient's care today; this time is exclusive of procedural time.
--- NOTE | 2021-05-09 11:12 | SUR.HOLD ---
1045 05/09/21 Patient recieved on floor , room 215, bedside report from OR. Transfered to preop holding with 1st of 2 units of blood transfussing. Reported in rapid a fib today. Recieved iv digoxin and ekg done for hypotension post passing 400 ml more of blood. message passed on to anesthesia and Dr Cannon in preop. vss. placed on monitor. continues with rapid hr of 148-150/irregular. no complaints of pain. skin tone pale. am labs noted. recieved vit k and Prothrombin complex iv on floor for elevated inr. braclet left arm-cant come off per pt. ring taped. teeth remain upstairs. 1115-to OR with blood on pump still infusing. no changes with status.
[2021-05-09] MEDS: EPINEPHrine 1 MG/ML SUBCUT (11:50)
--- NOTE | 2021-05-09 11:54 | PM.OP.EGD ---
Operative Date/Time/Diagnoses Date of procedure: 05/09/21 Time of procedure: 11:54 Pre-op diagnosis: GI bleed Post-op diagnosis: same Procedure & Clinicians Study performed: Esophagoduodenoscopy Same procedure as scheduled: Yes Indications: 81-year-old woman anticoagulated but admitted with a upper GI bleed Surgeon: Romel Cannon Procedure Notes Procedure in detail: Patient was brought to the operating room placed supine on table. General anesthesia was induced she was intubated with an endotracheal tube. Time-out was performed. The endoscope was then inserted into the mouth and advanced down the esophagus into the stomach. Upon entry to the stomach there was a large volume of clot which was irrigated and suctioned out. The pylorus was intubated and the duodenum was observed down to the 2nd portion. There was a large volume of clot within the duodenum but there was no active bleeding. Careful inspection of the stomach demonstrated multiple bleeding shallow ulcers. There were ulcers two with the body and one within the gastric cardia all shallow, each approximately 5 mm with raw mucosa no visible vessel. Diulte epidnephrine total of 3 ml was injected followed by placement of hemoclips. Final inspection of the stomach demonstrated no active bleeding. The esophagus was normal in its appearance the scope was withdrawn. Specimen(s): none sent Complications: none Impression: gastric ulcers Post-procedure Plan for aftercare: Hold anticoagulation continue PPI ok for diet as tolerated Disposition: Acute Care
[2021-05-09] MEDS: ONDANSETRON 4 MG/2 ML INJ IV ×2 (12:01→15:30)
--- NOTE | 2021-05-09 12:16 | SUR.PHASEI ---
Report to Chloe. Going to floor with Maranda GALINDO and Robina raya
--- NOTE | 2021-05-09 12:19 | CM.DANOTE ---
Patient is an 81 yo female who was admitted on 05/08/21 for Diarrhea/Stomach Pains. Pt has [facility] and for insurance and her PCP is Tim Olmedo. EMR was reviewed. Per MD, pt with hx of AFIB and had rapid response called this morning and was tachy but pt more stabilized now and received 1 unit of blood from her GI Bleed. Surgeon to scope pt today to determine source of bleed and likely this afternoon with go to the OR. Pt is unvaccinated and tested positive for COVID19 in May 2019. SW met bedside with pt and explained role and she confirms that she lives in [place] and her spouse 3 years ago and therefore pt now has 2 roommates and 6 dogs. Pt is active and independent at baseline and denies any HH or SNF for herself. Pt drives and does not typically use DME for ambulation. Pt thinks her DPOA is Pipe Smoker Machine Operator Ivon Manjarrez because she has 3 adult children but all are ungrateful and I'm not talking to them right now. Pt states one of her roommates has a long hx of medical complications with blood clots, etc and therefore can assist pt some but she mostly helps them. DCP needs unclear at this time. Plan: SW to follow closely after scope today towards determining any d/c planning needs and any further identified discharge barriers. CHRISTINE Hayden Discharge Planning/Care Management Advanced directive, confirm from FAMILY Start: 05/08/21 23:18 Freq: Q24H Status: Active Protocol: Document 05/08/21 23:18 AGW (Rec: 05/09/21 03:19 AGW [id number]) Advance Directive, confirm on record Time 23:00 Person contacted patient Copy received No CM Discharge Assessment Start: 05/09/21 12:17 Freq: Status: Active Protocol: Document 05/09/21 12:17 BF (Rec: 05/09/21 12:19 BF [id number]) Discharge Planning Assessment Assigned Seismograph Chief CHRISTINE Otto DPOA/Assigned Designee Name possibly Pipe Smoker Machine Operator Ivon Manjarrez Advance Directives? Yes Advance Directives on File No History Provided By Patient,Medical Record Has Patient been admitted in last 30 No days? Prior Living Arrangements House Household Members friend(s),other Comment 2 roommates currently and 6 dogs Type of transporation used prior to Drives own vehicle admit Independent with ADL's Yes Is patient alert and oriented? Yes Caregiver for Another No Barriers to Discharge No Discharge Plan Home Transportation Arrangement friend to likely transport home at d/c Referrals Initiated None needed Additional Comment Pending pt's scope and needs Whiteboard Updated in Patient Room with Yes name and ext. # of Seismograph Chief Review Status In Process Please Provide Date Initial DC 05/09/21 Assessment Was Performed Next Review Type Continued Stay Review
[2021-05-09 15:07] LABS: Hematocrit 26.2 % (36-46); Hemoglobin 8.6 g/dL (12.0-16.0)
[2021-05-09 15:33] LABS: Troponin I 0.094 ng/mL (0.01-0.034)
--- NOTE | 2021-05-09 16:26 | P.PN_ITS ---
Subjective Subjective Date Patient Seen: 05/09/21 Time Patient Seen: 08:00 Interval history: RN CLINICAL APPEALS called this AM. Patient was diaphoretic, tachycardic, and pre-syncopal after movement. Complaints of palpitations all morning. Borderline BP this AM. digoxin IV given for attempted rate control but patient had recent large black BM. Surgery consulted quickly and was taken to endoscopy where found to have bleeding gastric ulcers, clips were placed and had epi injections. H/h dipped to 7.2, given symptoms she was transfused 2U PRBC this AM, now improved to 8.6. She also had rapid afib with non-specific ST changes, troponin did come up this afternoon, but symptoms improved and is likely demand but will continue to follow. Exam Vital Signs (past 8 hours): - 05/09/21 09:18 05/09/21 10:52 05/09/21 11:55 Temperature 98.5 F 99.4 F 98.2 F Pulse Rate 126 H 150 H 97 H Respiratory Rate 16 15 15 Blood Pressure 111/66 132/82 151/82 H Pulse Oximetry 100 99 05/09/21 12:00 05/09/21 12:50 05/09/21 12:53 Temperature 98.0 F 98.0 F 98.0 F Pulse Rate 87 86 92 H Respiratory Rate 18 17 16 Blood Pressure 135/53 L 120/76 137/68 Pulse Oximetry 98 97 05/09/21 13:26 05/09/21 14:26 Temperature 98.2 F Pulse Rate 86 88 Respiratory Rate 14 17 Blood Pressure 141/63 H 138/77 Pulse Oximetry 97 Oxygen Delivery Method Room Air Oxygen Flow Rate 0 Narrative Exam Narrative: GENERAL: Obese female in no apparent distress HEENT: No scleral icterus CV: Regular rate, no peripheral edema LUNGS: No increased work of breathing.? Patient speaks in full sentences without oxygen support. ABDOMEN: Soft, non-tender, non-distended NEURO: Nonfocal, normal strength throughout SKIN: Warm and dry Objective Labs Result Diagrams: 05/09/21 14:54 05/09/21 04:11 Labs: Laboratory Results - last 24 hr 05/08/21 05/08/21 05/08/21 16:54 16:54 16:54 WBC 9.5 RBC 3.60 L Hgb 10.7 L Hct 32.8 L MCV 91.0 MCH 29.8 MCHC 32.7 RDW 14.1 Plt Count 285 Neut % (Auto) 85.8 H Lymph % (Auto) 10.7 L [place] % (Auto) 2.5 L Eos % (Auto) 0.5 L Baso % (Auto) 0.5 Neut # (Auto) 8100 H Lymph # (Auto) 1000 L [place] # (Auto) 200 Eos # (Auto) 100 Baso # (Auto) 0 PT INR APTT Sodium 138 Potassium 4.6 Chloride 107 Carbon Dioxide 26 BUN 33 H Creatinine 0.73 Estimated GFR > 60.0 BUN/Creatinine Ratio 45.2 H Glucose 150 H Calcium 8.7 Magnesium 2.0 Total Bilirubin 0.3 AST 22 ALT 14 Alkaline Phosphatase 62 Troponin I Total Protein 6.1 L Albumin 3.5 Globulin 2.6 Albumin/Globulin Ratio 1.3 C. difficile Tox (PCR) SARS-CoV-2 (PCR) Blood Type Antibody Screen Crossmatch 05/08/21 05/08/21 05/08/21 16:54 16:54 20:42 WBC RBC Hgb 9.9 L Hct 30.8 L MCV MCH MCHC RDW Plt Count Neut % (Auto) Lymph % (Auto) [place] % (Auto) Eos % (Auto) Baso % (Auto) Neut # (Auto) Lymph # (Auto) [place] # (Auto) Eos # (Auto) Baso # (Auto) PT 39.7 H INR 3.4 H APTT Sodium Potassium Chloride Carbon Dioxide BUN Creatinine Estimated GFR BUN/Creatinine Ratio Glucose Calcium Magnesium Total Bilirubin AST ALT Alkaline Phosphatase Troponin I < 0.012 Total Protein Albumin Globulin Albumin/Globulin Ratio C. difficile Tox (PCR) SARS-CoV-2 (PCR) Blood Type Antibody Screen Crossmatch 05/08/21 05/08/21 05/09/21 20:42 20:54 00:55 WBC RBC Hgb Hct MCV MCH MCHC RDW Plt Count Neut % (Auto) Lymph % (Auto) [place] % (Auto) Eos % (Auto) Baso % (Auto) Neut # (Auto) Lymph # (Auto) [place] # (Auto) Eos # (Auto) Baso # (Auto) PT INR APTT Sodium Potassium Chloride Carbon Dioxide BUN Creatinine Estimated GFR BUN/Creatinine Ratio Glucose Calcium Magnesium Total Bilirubin AST ALT Alkaline Phosphatase Troponin I Total Protein Albumin Globulin Albumin/Globulin Ratio C. difficile Tox (PCR) Negative for c. diff SARS-CoV-2 (PCR) Negative Blood Type O Positive Antibody Screen Negative Crossmatch See Detail 05/09/21 05/09/21 05/09/21 04:11 04:11 04:11 WBC RBC Hgb 8.9 L Hct 27.4 L MCV MCH MCHC RDW Plt Count Neut % (Auto) Lymph % (Auto) [place] % (Auto) Eos % (Auto) Baso % (Auto) Neut # (Auto) Lymph # (Auto) [place] # (Auto) Eos # (Auto) Baso # (Auto) PT 37.9 H INR 3.3 H APTT 42 H Sodium 135 L Potassium 4.0 Chloride 109 H Carbon Dioxide 27 BUN 28 H Creatinine 0.71 Estimated GFR > 60.0 BUN/Creatinine Ratio 39.4 H Glucose 163 H Calcium 8.2 L Magnesium Total Bilirubin AST ALT Alkaline Phosphatase Troponin I Total Protein Albumin Globulin Albumin/Globulin Ratio C. difficile Tox (PCR) SARS-CoV-2 (PCR) Blood Type Antibody Screen Crossmatch 05/09/21 05/09/21 05/09/21 08:35 08:35 14:54 WBC RBC Hgb 7.2 L 8.6 L Hct 22.1 L 26.2 L MCV MCH MCHC RDW Plt Count Neut % (Auto) Lymph % (Auto) [place] % (Auto) Eos % (Auto) Baso % (Auto) Neut # (Auto) Lymph # (Auto) [place] # (Auto) Eos # (Auto) Baso # (Auto) PT 28.0 H D INR 2.5 H APTT Sodium Potassium Chloride Carbon Dioxide BUN Creatinine Estimated GFR BUN/Creatinine Ratio Glucose Calcium Magnesium Total Bilirubin AST ALT Alkaline Phosphatase Troponin I Total Protein Albumin Globulin Albumin/Globulin Ratio C. difficile Tox (PCR) SARS-CoV-2 (PCR) Blood Type Antibody Screen Crossmatch 05/09/21 14:54 WBC RBC Hgb Hct MCV MCH MCHC RDW Plt Count Neut % (Auto) Lymph % (Auto) [place] % (Auto) Eos % (Auto) Baso % (Auto) Neut # (Auto) Lymph # (Auto) [place] # (Auto) Eos # (Auto) Baso # (Auto) PT INR APTT Sodium Potassium Chloride Carbon Dioxide BUN Creatinine Estimated GFR BUN/Creatinine Ratio Glucose Calcium Magnesium Total Bilirubin AST ALT Alkaline Phosphatase Troponin I 0.094 H Total Protein Albumin Globulin Albumin/Globulin Ratio C. difficile Tox (PCR) SARS-CoV-2 (PCR) Blood Type Antibody Screen Crossmatch [facility] Medical History Atrial fibrillation Chronic anticoagulation COVID-19 virus infection Essential hypertension Hypoglycemia Surgical History History of bilateral hip arthroplasty History of bilateral knee arthroplasty Family History Mother Depression Father Heart attack Social History household members: friend(s) and other Smoking Status: Never smoker alcohol intake: never Assessment & Plan Assessment & Plan narrative: Samreen Tellez is an 81-year-old female with a medical history of atrial fibrillation on coumadin, essential hypertension, hypoglycemia and COVID infection May of 2019 who presented to the ED after having 3 days of progressively worsening atrial fibrillation, lightheaded, and shortness of breath. Today she had a BM of black tarry stool and melena in the ED. Patient is on chronic anticoagulation with Coumadin due to atrial fibrillation, patient was admitted for gastrointestinal bleeding. 1. Gastrointestinal hemorrhage secondary to bleeding gastric ulcer with supratherapeutic INR. - s/p 3 U total PRBC. Also given FFP without significant improvement. Given tachycardia, INR 2.5 this AM, and bleeding was given K-centra this morning. - h/h finally improved, bottomed at 7.2 despite initial 1 U PRBC. - s/p endoscopy with Dr. Cannon with clips and epi injection - follow up endoscopy results - continue IV PPI BID, diet per surgery at this time. CLD for now. - hold coumadin. 2. Atrial fibrillation, chronic, present on admission with supratherapeutic INR. -patient is placed on tele, patient initially in NSR. Developed afib with RVR likely due to severe anemia now improved. - resume beta graciela and prn digoxin. 3. Essential hypertension, acute on chronic, present on admission -continue lisinopril, metoprolol 4. Depression with anxiety, acute on chronic, present on admission -continue duloxetine 5. Obesity as evidence by BMI of 30.3, acute on chronic, present on admission -a dietary consult not placed at this time due to acute illness. 6. Type 2 [place], secondary to demand ischemia from GI bleeding - troponin positive at 0.094 after event this morning, patient with palpitations and some chest discomfort, EKG with non-specific ST changes indicating possible ischemia but now improved in sinus rhythm after correction of bleeding. - continue to follow troponin until downtrending. - continue telemetry. Code status:? Full Surrogate decision maker:? Building Superintendent Ivon Manjarrez COVID PCR:? Negative COVID vaccination:? Unvaccinated DVT/VTE prophylaxis:? SCDs only Disposition:?Inpatient, continue to monitor for recurrent bleeding after endoscopy findings. Time Spent With Patient Critical Care time: I spent a total of [] minutes of critical care time on this patient's care today; this time is exclusive of procedural time. Quality VTE Deep Vein Thrombosis/Pulmonary Embolism Present on Admission: No
[2021-05-09] MEDS: ALPRAZolam 0.5 MG TABLET PO (20:18)
--- NOTE | 2021-05-09 20:19 | PC.NURSE ---
Rapid response: Pt thought she was feeling better this am and would be able to get up for a bm. Pt did get up, had very large bm, however became dizzy and sweaty while up, heart rate up to 160's o2 sat ra was 95% which is down from 100%. Said her heart was flip flopping all around. Denies any c/p. Pt had large bloody stool and was unable to stand. UTO BP. Rapid response was called at that time. Assisted back to bed with 2 people, pivot transfer. Pt went into afib at that time. See md orders. Pt did receive a total of 2 units of blood. No sxs of transfusion reaction. Off to OR later this am. Returned, had received some metoprolol in OR and had converted back to sinus, still feels heart palpitations. Heart remains with a rate of 90's. Has had sm bloody smears of stool since. //////////
[2021-05-09] MEDS: METOPROLOL IR 50 MG TABLET PO (20:36)
[2021-05-09 23:21] LABS: Hematocrit 25.8 % (36-46); Hemoglobin 8.5 g/dL (12.0-16.0)
[2021-05-10] VITALS (13 sets, daily range): BP systolic 105–167; BP diastolic 39–74; PULSE 71–94; RESP 16–19; TEMP 36.1–37.4; O2SAT 96–99
[2021-05-10 06:37] LABS: Add Manual Diff / Slide Review NO; Basophils Absolute Auto 0 /uL (0-100); Basophils Percent Auto 0.4 % (0-2); Eosinophils Absolute Auto 100 /uL (0-450); Eosinophils Percent Auto 0.8 % (2-4); Hematocrit 25.6 % (36-46); Hemoglobin 8.5 g/dL (12.0-16.0); Lymphocytes Absolute Auto 1000 /uL (1100-4500); Lymphocytes Percent Auto 11.4 % (25-40); Mean Corpuscular HGB Conc 33.1 % (30-36); Mean Corpuscular Hemoglobin 28.4 PG (26-34); Mean Corpuscular Volume 85.7 fL (80-100); Monocytes Absolute Auto 900 /uL (0-900); Monocytes Percent Auto 9.9 % (3-14); Neutrophils Absolute Auto 7100 /uL (1500-7000); Neutrophils Percent Auto 77.5 % (50-75); Platelet Count 186 X10^3/uL (150-400); Red Blood Cell Count 2.99 X10^6/uL (4.0-5.2); Red Cell Distribution Width 18.6 % (11.6-14.8); White Blood Cell Count 9.1 X10^3/uL (4.5-11.0)
[2021-05-10 06:41] LABS: INR 1.6 (0.9-1.3); Prothrombin Time 17.5 SECONDS (10.1-12.7)
[2021-05-10 06:46] LABS: BUN Creatinine Ratio 18.7 (6-22); Blood Urea Nitrogen 14 mg/dL (7-17); Carbon Dioxide 26 mmol/L (22-32); Chloride 109 mmol/L (98-107); Estimated Glomerular Filt Rate > 60.0 mL/min (>60); Glucose 132 mg/dL (80-110); HEMOLYSIS < 15 (0-50); Potassium 3.6 mmol/L (3.4-5.1); Sodium 138 mmol/L (137-145)
[2021-05-10] MEDS: ONDANSETRON 4 MG ODT SL (07:57)
[2021-05-10] MEDS: METOPROLOL IR 50 MG TABLET PO ×2 (07:57→20:24)
[2021-05-10] MEDS: PANTOPRAZOLE DR 40 MG TABLET PO ×2 (09:21→20:24)
[2021-05-10] MEDS: lisinopriL 10 MG TABLET PO (09:22)
[2021-05-10] MEDS: DULOXETINE 30 MG CAPSULE 60 MG PO (09:22)
--- NOTE | 2021-05-10 11:21 | P.PN_ITS ---
Subjective Subjective Date Patient Seen: 05/10/21 Time Patient Seen: 11:21 Interval history: This is an 81-year-old female admitted with upper GI bleeding found to have a bleeding gastric ulcer on endoscopy yesterday. Her H&H appears stable this morning but she continues to have melanotic appearing stools, quite frequent overnight. The patient still feels weak but denies palpitations, chest pain, shortness of breath today. No abdominal pain, nausea, or vomiting. Exam Vital Signs (past 8 hours): - 05/10/21 06:00 05/10/21 08:42 05/10/21 09:39 Temperature 99.4 F 98.2 F Pulse Rate 78 81 Pulse Rate [Orthostatic Lying] 81 Pulse Rate [Orthostatic Sitting] 81 Pulse Rate [Orthostatic Standing] 71 Respiratory Rate 18 18 Blood Pressure 152/50 H 167/67 H Blood Pressure [Orthostatic Lying] 165/70 H Blood Pressure [Orthostatic Sitting] 156/52 H Blood Pressure [Orthostatic Standing] 105/54 L Pulse Oximetry 98 97 05/10/21 10:00 Temperature Pulse Rate Pulse Rate [Orthostatic Lying] Pulse Rate [Orthostatic Sitting] Pulse Rate [Orthostatic Standing] Respiratory Rate Blood Pressure Blood Pressure [Orthostatic Lying] Blood Pressure [Orthostatic Sitting] Blood Pressure [Orthostatic Standing] Pulse Oximetry 97 Oxygen Delivery Method Room Air Oxygen Flow Rate 0 Narrative Exam Narrative: GENERAL: Obese female in no apparent distress HEENT: No scleral icterus CV: Regular rate, no peripheral edema LUNGS: No increased work of breathing.? Patient speaks in full sentences without oxygen support. ABDOMEN: Soft, non-tender, non-distended NEURO: Nonfocal, normal strength throughout SKIN: Warm and dry Objective Labs Result Diagrams: 05/10/21 06:24 05/10/21 06:24 Labs: Laboratory Results - last 24 hr 05/08/21 05/09/21 05/09/21 20:42 14:54 14:54 WBC RBC Hgb 8.6 L Hct 26.2 L MCV MCH MCHC RDW Plt Count Neut % (Auto) Lymph % (Auto) [place] % (Auto) Eos % (Auto) Baso % (Auto) Neut # (Auto) Lymph # (Auto) [place] # (Auto) Eos # (Auto) Baso # (Auto) PT INR Sodium Potassium Chloride Carbon Dioxide BUN Creatinine Estimated GFR BUN/Creatinine Ratio Glucose Calcium Troponin I 0.094 H Blood Type O Positive Antibody Screen Negative Crossmatch See Detail 05/09/21 05/09/21 05/10/21 23:10 23:10 06:24 WBC 9.1 RBC 2.99 L Hgb 8.5 L 8.5 L Hct 25.8 L 25.6 L MCV 85.7 D MCH 28.4 MCHC 33.1 RDW 18.6 H Plt Count 186 Neut % (Auto) 77.5 H Lymph % (Auto) 11.4 L [place] % (Auto) 9.9 Eos % (Auto) 0.8 L Baso % (Auto) 0.4 Neut # (Auto) 7100 H Lymph # (Auto) 1000 L [place] # (Auto) 900 Eos # (Auto) 100 Baso # (Auto) 0 PT INR Sodium Potassium Chloride Carbon Dioxide BUN Creatinine Estimated GFR BUN/Creatinine Ratio Glucose Calcium Troponin I 0.080 H Blood Type Antibody Screen Crossmatch 05/10/21 05/10/21 06:24 06:24 WBC RBC Hgb Hct MCV MCH MCHC RDW Plt Count Neut % (Auto) Lymph % (Auto) [place] % (Auto) Eos % (Auto) Baso % (Auto) Neut # (Auto) Lymph # (Auto) [place] # (Auto) Eos # (Auto) Baso # (Auto) PT 17.5 H D INR 1.6 H Sodium 138 Potassium 3.6 Chloride 109 H Carbon Dioxide 26 BUN 14 Creatinine 0.75 Estimated GFR > 60.0 BUN/Creatinine Ratio 18.7 Glucose 132 H Calcium 8.0 L Troponin I Blood Type Antibody Screen Crossmatch [facility] Medical History (Updated 05/09/21 @ 17:59 by Deandra Perry MD) Atrial fibrillation Chronic anticoagulation COVID-19 virus infection Essential hypertension GI bleed Hypoglycemia Surgical History History of bilateral hip arthroplasty History of bilateral knee arthroplasty Family History Mother Depression Father Heart attack Social History household members: friend(s) and other Smoking Status: Never smoker alcohol intake: never Assessment & Plan Assessment & Plan narrative: Samreen Tellez is an 81-year-old female with a medical history of atrial fibrillation on coumadin, essential hypertension, hypoglycemia and COVID infection May of 2019 who presented to the ED after having 3 days of progressively worsening atrial fibrillation, lightheaded, and shortness of breath. Admitted with a bleeding gastric ulcer. 1. Acute blood loss anemia secondary bleeding gastric ulcer with supratherapeutic INR, with coumadin exacerbating GI bleeding. ?- s/p 3 U total PRBC. Also given FFP without significant improvement initially in bleeding. Given tachycardia, INR 2.5 yesterday AM, and still patient was bleeding bleeding was given K-centra. ?- h/h finally improved, bottomed at 7.2 despite initial 1 U PRBC. Now stable around 8.5-8.6 but still with melena. ?- s/p endoscopy with Dr. Cannon with clips and epi injection on 05/09/21. [facility] ?- follow up endoscopy results ?- continue IV PPI BID, diet advanced to soft today. ?- hold coumadin. - continue to monitor here given high probability of possible rebleeding. 2. Atrial fibrillation, chronic, present on admission with supratherapeutic INR. - patient on tele, patient initially in NSR. Developed afib with RVR likely due to severe anemia now resolved ?- resume beta graciela and prn digoxin. 3. Essential hypertension, acute on chronic, present on admission -continue lisinopril, metoprolol 4. Depression with anxiety, acute on chronic, present on admission -continue duloxetine 5. Obesity as evidence by BMI of 30.3, acute on chronic, present on admission -a dietary consult not placed at this time due to acute illness. 6. Type 2 [place], secondary to demand ischemia from GI bleeding ?- troponin positive at 0.094 after bleeding event, patient with palpitations and some chest discomfort, EKG with non-specific ST changes indicating possible ischemia but now improved in sinus rhythm after correction of bleeding. ?- troponin did peak at 0.094 then downtrended. ?- continue telemetry. Code status:? Full Surrogate decision maker:? Appointment Clerk Ivon Manjarrez COVID PCR:? Negative COVID vaccination:? Unvaccinated DVT/VTE prophylaxis:? SCDs only Disposition:?Inpatient, continue to monitor for recurrent bleeding after endoscopy findings. Time Spent With Patient Critical Care time: I spent a total of [] minutes of critical care time on this patient's care today; this time is exclusive of procedural time. Quality VTE Deep Vein Thrombosis/Pulmonary Embolism Present on Admission: No
--- NOTE | 2021-05-10 13:40 | PT.IIE ---
Current Diagnoses Gastrointestinal hemorrhage, unspecified (05/08/21) Surgery Performed Operation Date: 05/09/21 11:15 Actual Procedures p Esophagogastroduodenoscopy with clipping gastric body - Romel Cannon MD Medical History (Last Updated 05/09/21 @ 17:59 by Deandra Perry MD) Atrial fibrillation Chronic anticoagulation COVID-19 virus infection Essential hypertension GI bleed Hypoglycemia Physical Therapy Inpatient Evaluation/Re-Eval M1 PT/OT-IP Prior Functional Status Start: 05/10/21 16:17 Freq: NEEDED Status: Active Protocol: Document 05/10/21 13:40 AB (Rec: 05/10/21 16:35 AB [email or web address]) Medical Review Prior Functional Status Medical History Reviewed Yes Communication able to make needs known Mobility and Gait pt stated that she is modified independent witha ll mobilities and ambulation using SPC Social History Household Members friend(s),other Living Arrangements House Number of Floors (Floors) Two Floors Number of Stairs To Enter/Railing? 3 steps B rails to enter the house 14 steps B rails to get to 2nd level bedroom Home Environment Standard Height Toilet,High Toilet,Tub/Shower Additional Social History Comment pt stated her roommate will be able to assist her pt also has a caregiver that comes in 5x/week for 4 hours/ day pt stated that her tub shower does not work and she just splash bathe M2 PT-IP Current Condition Start: 05/10/21 16:17 Freq: NEEDED Status: Active Protocol: Document 05/10/21 13:40 AB (Rec: 05/10/21 16:35 AB [email or web address]) Physical Therapy Current Condition Current Condition Evaluation Date 05/10/21 Treatment Diagnosis GI bleed; difficulty in walking Onset Date 05/08/21 M3 PT-IP Subjective Start: 05/10/21 16:17 Freq: NEEDED Status: Active Protocol: Document 05/10/21 13:40 AB (Rec: 05/10/21 16:35 AB [email or web address]) Subjective Physical Therapy Visit Type Type Initial Evaluation Visit Start Time 13:40 Visit Stop Time 14:12 Total Visit Minutes 32 Number of BUSINESS RULES ANALYST Visits 0 Physical Therapy Visit Comments Patient Comments agreeable to do PT M4 PT-IP Mobility and Gait Start: 05/10/21 16:17 Freq: NEEDED Status: Active Protocol: Document 05/10/21 13:40 AB (Rec: 05/10/21 16:35 AB [email or web address]) PT-Bed Mobility Assessment Supine to Sit Supine to Sit Standby Assistance Sit to Supine Sit to Supine Standby Assistance PT-Transfer Assessment Sit to and From Stand Sit to and from Stand Contact Guard Assistance Equipment Transfer Assistive Device Gait Belt,Front Wheeled Walker Orthotic/Prosthetic Devices or Brace: No Comments Mobility Comments BP monitored. BP supine: 123/ 49. completed supine to sit SBA. pt able to sit on EOB SBA. BP checked: 129/39. c/o initial dizziness but dissipated. BP in sitting after ~ 3 min: 136/41. pt completed sit to stand CGA. BP with initial standin/ 57. pt stood for another ~ 4 min and BP: 123/57. pt ambulated in room ~ 50 ft using FWW CGA. Pt refused further ambulation and stair climbing. requested to go back to bed. sat on EOB. BP after ambulation in sittin/65. pt completed sit to supine SBA. positioned pt in bed. call light and table placed within reach. Gait Assessment Gait Gait Assistance Required: Contact Guard Assist Distance (Feet) 50 Able to Maintain Weight Bearing Status Yes During Gait Assistive Devices Assistive Device Gait Belt,Front Wheeled Walker Orthotic/Prosthetic Devices or Brace: No Gait Deviations General Gait Pattern Antalgic,Decreased Stride Length,Decreased Feet Clearance Factors Limiting Gait Function Factors Limiting Gait Function Decreased Activity Tolerance, Decreased Strength,Poor Balance,Poor Safety Awareness PT-Balance Assessment Sitting Balance and Reactions Static Sitting Balance Ability Good Dynamic Sitting Balance Ability Good Standing Balance and Reactions Static Standing Balance Ability Fair Dynamic Standing Balance Ability Fair Device Used FWW M5 PT-IP Objective Assessments Start: 05/10/21 16:17 Freq: NEEDED Status: Active Protocol: Document 05/10/21 13:40 AB (Rec: 05/10/21 16:35 AB [email or web address]) Orientation Orientation/Cognition Level of Alertness Alert Orientation Name,Place,Situation Safety Awareness Decreased Safety Awareness Comments pt with slight confusion and stated that she sees image of a man on the door and animals on the ceiling and stated: Am I going crazy. Gross Range of Motion Lower Extremity ROM Assessment Within Functional Limits Strength Lower Extremity Strength Assessment Within Functional Limits Sensation Assessment Sensation Gross Sensation WNL Muscle Tone Muscle Tone WNL Yes M6 PT-IP Treatment Start: 05/10/21 16:17 Freq: NEEDED Status: Active Protocol: Document 05/10/21 13:40 AB (Rec: 05/10/21 16:35 AB [email or web address]) Physical Therapy Treatment Education Education Provided Safety M7 PT-IP Assessment and Plan Start: 05/10/21 16:17 Freq: NEEDED Status: Active Protocol: Document 05/10/21 13:40 AB (Rec: 05/10/21 16:35 AB [email or web address]) PT Summary Assessment and Plan Potential Rehabilitation Potential Fair Status of Condition at Evaluation Stable Summary Impairments Pain,ROM,Strength,Balance, Coordination,Sensation,Tone, Cognition,Bed Mobility, Transfers,Gait,Activity Tolerance Assessment Summary pt requiring CGA with mobility but unable to tolerate much activity. pt plans to go home and her room mate will be able to assist her and has a caregiver that comes in 5x/ week for 4 hours. Pt has a quite a number of stair at home and stair training will be completed prior to d/c. will continue PT to improve mobility. pt also does not have a FWW but stated that she will be one by tomorrow. Goals Bed Mobility Goal Independent Transfer Goal Independent,Front Wheeled Walker Gait Goal Independent,Front Wheel Walker Gait Distance 200 Other Goals up/down 14 steps B rails SBA Days to Meet Goals 10 Frequency of Treatment Frequency Of Treatment Once a Day Treatment Plan Physical Therapy Treatment Plan Bed Mobility Training,Transfer Training,Gait Training, Therapeutic Exercise,Balance Retraining,Discharge Planning, Hot or Cold Pack,Neuromuscular Re-ed,Coordination Retraining Recommendations To Nursing Amount of Assist Needed 1 Person Assist Discharge Recommendations PT Discharge Recommendations Home with Assistance,Home Health Transportation Needs at Discharge Private Vehicle
[2021-05-10 14:00] LABS: Appearance Urine UA SL CLOUDY; Bilirubin Urine UA NEGATIVE (NEGATIVE); Color Urine UA YELLOW; Glucose Urine UA NEGATIVE (Negative); Ketones Urine UA 1+ (NEGATIVE); Leukocyte Esterase Urine UA 2+ (NEGATIVE); Nitrite Urine UA POSITIVE (Negative); Occult Blood Urine UA 3+ (Negative); Protein Urine UA TRACE (Negative); Specific Gravity Urine UA 1.025 (1.000-1.035); Urobilinogen Urine UA 0.2 E.U./dL (0.2)
[2021-05-10 14:12] LABS: Bacteria Urine Many (>30); Culture Indicated Urine Specimen Cultured; RBC Urine 0-1/HPF (0-5/HPF); Squamous Epithelial Cell Urine 1-5 /HPF (0-5/HPF); WBC Urine 30-100/HPF (0-5/HPF)
[2021-05-10] MEDS: HYDROMORPHONE 2 MG TABLET PO (14:27)
[2021-05-10] MEDS: NITROFURANTOIN ER 100 MG CAPSULE PO ×2 (14:27→20:24)
[2021-05-10] MEDS: ALPRAZolam 0.5 MG TABLET PO (18:26)
[2021-05-10] MEDS: SODIUM CHLORIDE 0.9% FLUSH 10 ML IV (20:24)
[2021-05-11] VITALS (15 sets, daily range): BP systolic 92–143; BP diastolic 33–73; PULSE 61–81; RESP 16–19; TEMP 36.3–37.1; O2SAT 94–100
[2021-05-11 06:08] LABS: Add Manual Diff / Slide Review NO; Basophils Absolute Auto 100 /uL (0-100); Eosinophils Absolute Auto 200 /uL (0-450); Hematocrit 23.1 % (36-46); Hemoglobin 7.8 g/dL (12.0-16.0); Lymphocytes Absolute Auto 1800 /uL (1100-4500); Lymphocytes Percent Auto 23.4 % (25-40); Mean Corpuscular HGB Conc 33.5 % (30-36); Mean Corpuscular Hemoglobin 28.9 PG (26-34); Mean Corpuscular Volume 86.1 fL (80-100); Monocytes Absolute Auto 700 /uL (0-900); Monocytes Percent Auto 8.5 % (3-14); Neutrophils Absolute Auto 5100 /uL (1500-7000); Neutrophils Percent Auto 65.1 % (50-75); Platelet Count 187 X10^3/uL (150-400); Red Blood Cell Count 2.69 X10^6/uL (4.0-5.2); Red Cell Distribution Width 18.4 % (11.6-14.8); White Blood Cell Count 7.9 X10^3/uL (4.5-11.0)
[2021-05-11 06:14] LABS: INR 1.6 (0.9-1.3); Prothrombin Time 17.9 SECONDS (10.1-12.7)
[2021-05-11 06:19] LABS: BUN Creatinine Ratio 16.4 (6-22); Blood Urea Nitrogen 11 mg/dL (7-17); Calcium 8.1 mg/dL (8.4-10.2); Carbon Dioxide 29 mmol/L (22-32); Chloride 108 mmol/L (98-107); Estimated Glomerular Filt Rate > 60.0 mL/min (>60); Glucose 121 mg/dL (80-110); HEMOLYSIS < 15 (0-50); Potassium 3.4 mmol/L (3.4-5.1); Sodium 136 mmol/L (137-145)
[2021-05-11] MEDS: POTASSIUM CHLORIDE 20 MEQ TAB 40 MEQ PO (09:48)
[2021-05-11] MEDS: DULOXETINE 30 MG CAPSULE 60 MG PO (09:48)
[2021-05-11] MEDS: FUROSEMIDE 20 MG/2 ML VIAL IV (09:49)
[2021-05-11] MEDS: NITROFURANTOIN ER 100 MG CAPSULE PO ×2 (09:49→21:19)
[2021-05-11] MEDS: ALPRAZolam 0.5 MG TABLET PO ×2 (09:49→21:19)
[2021-05-11] MEDS: SODIUM CHLORIDE 0.9% FLUSH 10 ML IV ×2 (09:49→21:19)
[2021-05-11] MEDS: lisinopriL 10 MG TABLET PO (09:49)
[2021-05-11] MEDS: PANTOPRAZOLE DR 40 MG TABLET PO ×2 (09:49→21:19)
[2021-05-11] MEDS: METOPROLOL IR 50 MG TABLET PO ×2 (09:49→21:19)
--- NOTE | 2021-05-11 11:45 | PT.IPTN ---
Current Diagnoses Gastrointestinal hemorrhage, unspecified (05/08/21) Surgery Performed Operation Date: 05/09/21 11:15 Actual Procedures p Esophagogastroduodenoscopy with clipping gastric body - Romel Cannon MD Physical Therapy Treatment Note M2 PT-IP Current Condition Start: 05/10/21 16:17 Freq: NEEDED Status: Active Protocol: Document 05/10/21 13:40 AB (Rec: 05/10/21 16:35 AB [email or web address]) Physical Therapy Current Condition Current Condition Evaluation Date 05/10/21 Treatment Diagnosis GI bleed; difficulty in walking Onset Date 05/08/21 M3 PT-IP Subjective Start: 05/10/21 16:17 Freq: NEEDED Status: Active Protocol: Document 05/11/21 11:45 AB (Rec: 05/11/21 13:05 AB [email or web address]) Subjective Physical Therapy Visit Type Type Treatment Note Visit Start Time 11:45 Visit Stop Time 12:11 Total Visit Minutes 26 Number of RENT AND HOUSING INVESTIGATOR Visits 0 Physical Therapy Visit Comments Patient Comments agreed to do PT M4 PT-IP Mobility and Gait Start: 05/10/21 16:17 Freq: NEEDED Status: Active Protocol: Document 05/11/21 11:45 AB (Rec: 05/11/21 13:05 AB [email or web address]) PT-Bed Mobility Assessment Sit to Supine Sit to Supine Standby Assistance PT-Transfer Assessment Sit to and From Stand Sit to and from Stand Contact Guard Assistance,1 Person Assistance,Use of Upper Extremities Equipment Transfer Assistive Device Gait Belt,Front Wheeled Walker Orthotic/Prosthetic Devices or Brace: No Comments Mobility Comments pt sitting on EOB and agreed to do PT. informed pt regarding low H&H: 7.8 and 23. 1. pt is aware and stated that she wants to walk a little bit in the room for mobility and BP monitored. BP sitting on EOB 111/50. pt without c/o dizziness. pt completed sit to stand CGA. BP in standin/49. pt tolerated ~ 2 min of standing and without c/o dizziness. ambulated in room ~ 50 ft using FWW. Slow paced. pt requested to go back to bed. sat on EOB. BP after ambulation: 122/49. completed sit to supine SBA. positioned pt in bed. call light and table placed within reach. Gait Assessment Gait Gait Assistance Required: Contact Guard Assist,1 Person Assist Distance (Feet) 50 Able to Maintain Weight Bearing Status Yes During Gait Assistive Devices Assistive Device Gait Belt,Front Wheeled Walker Orthotic/Prosthetic Devices or Brace: No Gait Deviations General Gait Pattern Decreased Stride Length, Decreased Feet Clearance Factors Limiting Gait Function Factors Limiting Gait Function Decreased Activity Tolerance, Decreased Strength,Poor Balance M5 PT-IP Objective Assessments Start: 05/10/21 16:17 Freq: NEEDED Status: Active Protocol: Document 05/10/21 13:40 AB (Rec: 05/10/21 16:35 AB [email or web address]) Orientation Orientation/Cognition Level of Alertness Alert Orientation Name,Place,Situation Safety Awareness Decreased Safety Awareness Comments pt with slight confusion and stated that she sees image of a man on the door and animals on the ceiling and stated: Am I going crazy. Gross Range of Motion Lower Extremity ROM Assessment Within Functional Limits Strength Lower Extremity Strength Assessment Within Functional Limits Sensation Assessment Sensation Gross Sensation WNL Muscle Tone Muscle Tone WNL Yes M6 PT-IP Treatment Start: 05/10/21 16:17 Freq: NEEDED Status: Active Protocol: Document 05/11/21 11:45 AB (Rec: 05/11/21 13:05 AB [email or web address]) Physical Therapy Treatment Education Education Provided Safety M7 PT-IP Assessment and Plan Start: 05/10/21 16:17 Freq: NEEDED Status: Active Protocol: Document 05/11/21 11:45 AB (Rec: 05/11/21 13:05 AB [email or web address]) PT Summary Assessment and Plan Potential Rehabilitation Potential Fair Summary Impairments Pain,ROM,Strength,Balance, Coordination,Sensation,Tone, Cognition,Bed Mobility, Transfers,Gait,Activity Tolerance Progress Towards Goals Slow Progress due to Activity Tolerance Assessment Summary pt requiring CGA with ambulation using FWW. pt plans to go home and has her room mate to assist her if needed and also has a caregiver that comes in to assist. her. Will continue to assess progress and will conduct stair climbing training when appropriate. Goals Bed Mobility Goal Independent Transfer Goal Independent,Front Wheeled Walker Gait Goal Independent,Front Wheel Walker Gait Distance 200 Other Goals up/down 14 steps B rails SBA Days to Meet Goals 10 Frequency of Treatment Frequency Of Treatment Once a Day Treatment Plan Physical Therapy Treatment Plan Bed Mobility Training,Transfer Training,Gait Training, Therapeutic Exercise,Balance Retraining,Discharge Planning, Hot or Cold Pack,Neuromuscular Re-ed,Coordination Retraining Recommendations To Nursing Amount of Assist Needed 1 Person Assist Discharge Recommendations PT Discharge Recommendations Home with Assistance,Home Health Transportation Needs at Discharge Private Vehicle
[2021-05-11 15:55] LABS: H. Pylori Antigen Stool Negative (Negative)
--- NOTE | 2021-05-11 17:25 | P.PN_ITS ---
Subjective Subjective Date Patient Seen: 05/11/21 Time Patient Seen: 17:25 Interval history: This is an 81-year-old female admitted with upper GI bleeding found to have a bleeding gastric ulcer on endoscopy. Her H&H declined slightly this morning, she continues to have melanotic appearing stools, though improved mildly today.? The patient still feels weak, does notice some slight sweeling today but denies palpitations, chest pain, shortness of breath today. No abdominal pain, nausea, or vomiting. Exam Vital Signs (past 8 hours): - 05/11/21 09:40 05/11/21 10:09 05/11/21 12:00 Temperature 97.3 F L Pulse Rate 61 Pulse Rate [Orthostatic Lying] Pulse Rate [Orthostatic Sitting] Pulse Rate [Orthostatic Standing] Respiratory Rate 18 Blood Pressure 100/33 L Blood Pressure [Orthostatic Lying] Blood Pressure [Orthostatic Sitting] Blood Pressure [Orthostatic Standing] Pulse Oximetry 96 95 100 05/11/21 13:00 05/11/21 14:04 05/11/21 14:19 Temperature Pulse Rate Pulse Rate [Orthostatic Lying] 61 Pulse Rate [Orthostatic Sitting] 69 Pulse Rate [Orthostatic Standing] 79 Respiratory Rate Blood Pressure Blood Pressure [Orthostatic Lying] 100/33 L Blood Pressure [Orthostatic Sitting] 110/45 L Blood Pressure [Orthostatic Standing] 92/47 L Pulse Oximetry 99 96 05/11/21 17:18 Temperature 98.5 F Pulse Rate 77 Pulse Rate [Orthostatic Lying] 61 Pulse Rate [Orthostatic Sitting] 69 Pulse Rate [Orthostatic Standing] 79 Respiratory Rate 18 Blood Pressure 113/50 L Blood Pressure [Orthostatic Lying] 100/33 L Blood Pressure [Orthostatic Sitting] 110/45 L Blood Pressure [Orthostatic Standing] 92/47 L Pulse Oximetry 97 Oxygen Delivery Method Room Air Oxygen Flow Rate 0 Narrative Exam Narrative: GENERAL: Obese female in no apparent distress HEENT: No scleral icterus CV: Regular rate, no peripheral edema LUNGS: No increased work of breathing.? Patient speaks in full sentences without oxygen support. ABDOMEN: Soft, non-tender, non-distended NEURO: Nonfocal, normal strength throughout SKIN: Warm and dry Objective Labs Result Diagrams: 05/11/21 05:43 05/11/21 05:43 Labs: Laboratory Results - last 24 hr 05/08/21 05/09/2122 20:42 00:55 05:43 WBC 7.9 RBC 2.69 L Hgb 7.8 L Hct 23.1 L MCV 86.1 MCH 28.9 MCHC 33.5 RDW 18.4 H Plt Count 187 Neut % (Auto) 65.1 Lymph % (Auto) 23.4 L [place] % (Auto) 8.5 Eos % (Auto) 2.0 Baso % (Auto) 1.0 Neut # (Auto) 5100 Lymph # (Auto) 1800 [place] # (Auto) 700 Eos # (Auto) 200 Baso # (Auto) 100 PT INR Sodium Potassium Chloride Carbon Dioxide BUN Creatinine Estimated GFR BUN/Creatinine Ratio Glucose Calcium H. pylori Antigen Negative Crossmatch See Detail 05/11/21 05/11/21 05:43 05:43 WBC RBC Hgb Hct MCV MCH MCHC RDW Plt Count Neut % (Auto) Lymph % (Auto) [place] % (Auto) Eos % (Auto) Baso % (Auto) Neut # (Auto) Lymph # (Auto) [place] # (Auto) Eos # (Auto) Baso # (Auto) PT 17.9 H INR 1.6 H Sodium 136 L Potassium 3.4 Chloride 108 H Carbon Dioxide 29 BUN 11 Creatinine 0.67 Estimated GFR > 60.0 BUN/Creatinine Ratio 16.4 Glucose 121 H Calcium 8.1 L H. pylori Antigen Crossmatch [facility] Medical History (Updated 05/09/21 @ 17:59 by Deandra Perry MD) Atrial fibrillation Chronic anticoagulation COVID-19 virus infection Essential hypertension GI bleed Hypoglycemia Surgical History History of bilateral hip arthroplasty History of bilateral knee arthroplasty Family History Mother Depression Father Heart attack Social History household members: friend(s) and other Smoking Status: Never smoker alcohol intake: never Assessment & Plan Assessment & Plan narrative: Samreen Tellez is an 81-year-old female with a medical history of atrial fibrillation on coumadin, essential hypertension, hypoglycemia and COVID infection May of 2019 who presented to the ED after having 3 days of progressively worsening atrial fibrillation, lightheaded, and shortness of br eath. Admitted with a bleeding gastric ulcer. 1. Acute blood loss anemia secondary bleeding gastric ulcer with supratherapeutic INR, with coumadin exacerbating GI bleeding. ?- s/p 3 U total PRBC. Also given FFP without significant improvement initially in bleeding. Given tachycardia, INR 2.5, and still patient was bleeding bleeding was given K-centra. ?- h/h finally improved, bottomed at 7.2 despite initial 1 U PRBC. still with melena, declined slightly this morning. Will continue to follow q12. ?- s/p endoscopy with Dr. Cannon with clips and epi injection on 05/09/21. Appreciate surgery consultation. ?- follow up endoscopy biopsy results ?- continue PPI BID, diet advanced to soft today. ?- hold coumadin. - given 20 mg IV lasix today for swelling and mild dyspnea. If no improvement in dyspnea consider additional transfusion. 2. Atrial fibrillation, chronic, present on admission with supratherapeutic INR. ?- patient on tele, patient initially in NSR. Developed afib with RVR likely due to severe anemia now resolved ?- resume beta graciela and prn digoxin. 3. Essential hypertension, acute on chronic, present on admission -continue lisinopril, metoprolol 4. Depression with anxiety, acute on chronic, present on admission -continue duloxetine 5. Obesity as evidence by BMI of 30.3, acute on chronic, present on admission -a dietary consult not placed at this time due to acute illness. 6. Type 2 MT, secondary to demand ischemia from GI bleeding ?- troponin positive at 0.094 after bleeding event, patient with palpitations and some chest discomfort, EKG with non-specific ST changes indicating possible ischemia but now improved in sinus rhythm after correction of bleeding. ?- troponin did peak at 0.094 then downtrended. ?- continue telemetry. Code status:? Full Surrogate decision maker:? Sap Ppm Consultant Ivon Manjarrez COVID PCR:? Negative COVID vaccination:? Unvaccinated DVT/VTE prophylaxis:? SCDs only Disposition:?Inpatient, continue to monitor for recurrent bleeding after end oscopy findings. Time Spent With Patient Critical Care time: I spent a total of [] minutes of critical care time on this patient's care today; this time is exclusive of procedural time. Quality VTE Deep Vein Thrombosis/Pulmonary Embolism Present on Admission: No
[2021-05-11 17:46] LABS: Hematocrit 26.9 % (36-46); Hemoglobin 8.9 g/dL (12.0-16.0)
[2021-05-12 02:00] VITALS: O2SAT 95
[2021-05-12] MEDS: HYDROMORPHONE 2 MG TABLET PO (03:07)
[2021-05-12 05:54] VITALS: BP 149/53; PULSE 76; RESP 16; TEMP 37.2; O2SAT 97
[2021-05-12 06:00] VITALS: O2SAT 97
[2021-05-12 06:04] LABS: Add Manual Diff / Slide Review NO; Basophils Absolute Auto 0 /uL (0-100); Basophils Percent Auto 0.6 % (0-2); Eosinophils Absolute Auto 200 /uL (0-450); Eosinophils Percent Auto 3.4 % (2-4); Hematocrit 25.1 % (36-46); Hemoglobin 8.4 g/dL (12.0-16.0); Lymphocytes Absolute Auto 1700 /uL (1100-4500); Lymphocytes Percent Auto 29.8 % (25-40); Mean Corpuscular HGB Conc 33.6 % (30-36); Mean Corpuscular Hemoglobin 28.9 PG (26-34); Mean Corpuscular Volume 85.9 fL (80-100); Monocytes Absolute Auto 600 /uL (0-900); Monocytes Percent Auto 9.5 % (3-14); Neutrophils Absolute Auto 3300 /uL (1500-7000); Neutrophils Percent Auto 56.7 % (50-75); Platelet Count 236 X10^3/uL (150-400); Red Blood Cell Count 2.92 X10^6/uL (4.0-5.2); White Blood Cell Count 5.9 X10^3/uL (4.5-11.0)
[2021-05-12 06:05] LABS: INR 1.4 (0.9-1.3); Prothrombin Time 15.1 SECONDS (10.1-12.7)
[2021-05-12 06:22] LABS: BUN Creatinine Ratio 14.7 (6-22); Blood Urea Nitrogen 11 mg/dL (7-17); Calcium 8.5 mg/dL (8.4-10.2); Carbon Dioxide 33 mmol/L (22-32); Chloride 106 mmol/L (98-107); Estimated Glomerular Filt Rate > 60.0 mL/min (>60); Glucose 130 mg/dL (80-110); HEMOLYSIS < 15 (0-50); Potassium 3.8 mmol/L (3.4-5.1); Sodium 138 mmol/L (137-145)
[2021-05-12] MEDS: ALPRAZolam 0.5 MG TABLET PO (06:28)
[2021-05-12] MEDS: PANTOPRAZOLE DR 40 MG TABLET PO (06:28)
[2021-05-12 07:50] VITALS: BP 139/49; PULSE 93; RESP 17; TEMP 36.6; O2SAT 93
[2021-05-12 09:12] VITALS: O2SAT 98
--- NOTE | 2021-05-12 09:13 | P.DS_ITS ---
History of Present Illness History of Present Illness Date Patient Seen: 05/12/21 Time Patient Seen: 09:14 Chief complaint: DIARRHEA STOMACH PAIN Narrative: Per Genia Malone, BALLET SOLOIST-: Samreen Tellez is an 81-year-old female with a medical history of atrial fibrillation on coumadin, essential hypertension, hypoglycemia and COVID infection May of 2019 who presented to the ED after having 3 days of progressively worsening exacerbation atrial fibrillation,episodes of seeing stars whenever she moved her head quickly and felt lightheaded, and acute on set shortness of breath during her regular activity of walks on her expansive property.? Today she had a BM of black tarry stool which eventually led her into the ED, she further had melena in the ED. The patient has had no further black tarry stools upon admit.? Upon admit examination patient is resting comfortably in bed, is hemodynamically stable and in no distress.? Patient denies currently chest pain, shortness of breath, abdominal pain, nausea, vomiting, diarrhea, chills, fever, body aches, headache, changes in vision, weakness, numbness, tingling, hematuria, urinary symptoms, hematemesis, recent illness injury or trauma.? Patient denies any chronic use of NSAIDs or alcohol.? Patient is on Coumadin 5 mg x 6 days a week and 4 mg on Friday, she reports that her last PT INR was approximately 1 month ago and was reported to be within normal limits.? Patient denies any personal or family history of any bleeding disorders.? Patient denies any history of any GI disorders GERD, or GI bleeding. Patient's vitals upon admit are stable temp 97.2? mildly hypertensive with a BP of 161/78, HR 88, O2 saturation 98% on room air.? Patient's initial hemoglobin and hematocrit at 4:54 p.m. was 10.7 and 32.8, repeated at 8:42 p.m. 9.9 and 30.8.? Patient did have a neutrophils of 8100 but no white count.? Patient's BUN 33, glucose 150, total protein 6.1, patient's PT 39.7, patient's INR 3.4, patient was guaiac positive.? Patient's EKG demonstrated sinus rhythm with a rate of 75, possible lateral infarct undetermined.? Patient was typed and crossed in the ED O-positive, 1 unit packed red blood cells was ordered for the patient.? Dr. Cannon was consulted in the ED.? Patient admitted for gastrointestinal hemorrhage. Discharge Providers Provider Date of admission: 05/08/21 22:03 Discharge Date: 05/12/21 Primary care physician: Tim Olmedo MD Consults: 05/08/21 22:12 Consult to General Surgery Routine Comment: Consulting Provider: Romel Cannon Reason for consultation: GI Bleed Has provider been notified: Yes 05/10/21 11:34 Consult to Physical Therapy Evaluate & Treat Comment: Physician Instructions: Evaluate and Treat Discharge provider: Harmeet Bianchi DO Summary Hospital Course Discharge Diagnosis: Please see hospital course by problem list noted below. Hospital Course: Samreen Tellez is an 81-year-old female with a medical history of atrial fibrillation on coumadin, essential hypertension, hypoglycemia and COVID infection May of 2019 who presented to the ED after having 3 days of progressively worsening atrial fibrillation, lightheaded, and shortness of breath. Admitted with a bleeding gastric ulcer. 1. Acute blood loss anemia secondary bleeding gastric ulcer with supra therapeutic INR, with coumadin exacerbating GI bleeding. ?- s/p 3 U total PRBC during admission. Also given FFP without significant improvement initially in bleeding. Given tachycardia, INR 2.5, and still patient was bleeding bleeding was given K-centra very shortly after admission. ?- h/h finally improved, bottomed at 7.2 despite initial 1 U PRBC. Melena ultimately improved. h/h finally stabilized around upper 8s while patient was tolerating a diet. ?- s/p endoscopy with Dr. Cannon with clips and epi injection on 05/09/21. Appreciate surgery consultation. ?- follow up endoscopy biopsy results as outpatient. ?- continue PPI BID for at least 30 days, follow up with surgery as outpatient. ?- hold coumadin as outpatient. ?- given 20 mg IV lasix for dyspnea, possibly related to blood products and atrial fibrillation. Symptoms could be related to anemia as well. Not consistent with heart failure. 2. Atrial fibrillation, paroxysmal, with RVR present on admission with supratherapeutic INR. ?- patient on tele, patient initially in NSR. Developed afib with RVR likely due to severe anemia now resolved ?- resume beta graciela and prn digoxin on discharge. - INR > 3 on admit. Given FFP initially with continued bleeding, k-centra given. - hold coumadin as an outpatient. 3. Essential hypertension, acute on chronic, present on admission -continue lisinopril, metoprolol which both were initially held for bleeding and tachycardia with borderline low BPs. 4. Depression with anxiety, acute on chronic, present on admission -continue duloxetine 5. Obesity as evidence by BMI of 30.3, acute on chronic, present on admission 6. Type 2 RI, secondary to demand ischemia from GI bleeding and afib with RVR. ?- troponin positive at 0.094 after bleeding event, patient with palpitations and some chest discomfort, EKG with non-specific ST changes indicating possible ischemia but now improved in sinus rhythm after correction of bleeding. ?- troponin did peak at 0.094 then downtrended. ?- telemetry was without events other than RVR episode. Code status:? Full Surrogate decision maker:? Wheel Shop Supervisor Ivon Manjarrez COVID PCR:? Negative Time Spent with Patient Time spent: Greater than 30 minutes Exam Vital Signs (past 8 hours): - 05/12/21 02:00 05/12/21 05:54 05/12/21 06:00 Temperature 99.0 F Pulse Rate 76 Respiratory Rate 16 Blood Pressure 149/53 H Pulse Oximetry 95 97 97 05/12/21 07:50 Temperature 97.9 F Pulse Rate 93 H Respiratory Rate 17 Blood Pressure 139/49 L Pulse Oximetry 93 Oxygen Delivery Method Room Air Oxygen Flow Rate 0 Narrative Exam Narrative: GENERAL: Obese female in no apparent distress HEENT: No scleral icterus CV: Regular rate, no peripheral edema LUNGS: No increased work of breathing.? Patient speaks in full sentences without oxygen support. ABDOMEN: Soft, non-tender, non-distended NEURO: Nonfocal, normal strength throughout SKIN: Warm and dry Objective Labs Result Diagrams: 05/12/21 05:15 05/12/21 05:15 Labs: Laboratory Results - last 24 hr 05/08/21 05/09/21 05/11/21 20:42 00:55 17:35 WBC RBC Hgb 8.9 L Hct 26.9 L MCV MCH MCHC RDW Plt Count Neut % (Auto) Lymph % (Auto) [place] % (Auto) Eos % (Auto) Baso % (Auto) Neut # (Auto) Lymph # (Auto) [place] # (Auto) Eos # (Auto) Baso # (Auto) PT INR Sodium Potassium Chloride Carbon Dioxide BUN Creatinine Estimated GFR BUN/Creatinine Ratio Glucose Calcium H. pylori Antigen Negative Crossmatch See Detail 05/12/21 05/12/21 05/12/21 05:15 05:15 05:15 WBC 5.9 RBC 2.92 L Hgb 8.4 L Hct 25.1 L MCV 85.9 MCH 28.9 MCHC 33.6 RDW 18.0 H Plt Count 236 Neut % (Auto) 56.7 Lymph % (Auto) 29.8 [place] % (Auto) 9.5 Eos % (Auto) 3.4 Baso % (Auto) 0.6 Neut # (Auto) 3300 Lymph # (Auto) 1700 [place] # (Auto) 600 Eos # (Auto) 200 Baso # (Auto) 0 PT 15.1 H INR 1.4 H Sodium 138 Potassium 3.8 Chloride 106 Carbon Dioxide 33 H BUN 11 Creatinine 0.75 Estimated GFR > 60.0 BUN/Creatinine Ratio 14.7 Glucose 130 H Calcium 8.5 H. pylori Antigen Crossmatch [facility] Medical History (Updated 05/09/21 @ 17:59 by Deandra Perry MD) Atrial fibrillation Chronic anticoagulation COVID-19 virus infection Essential hypertension GI bleed Hypoglycemia Surgical History History of bilateral hip arthroplasty History of bilateral knee arthroplasty Family History Mother Depression Father Heart attack Social History household members: friend(s) and other Smoking Status: Never smoker alcohol intake: never Discharge Plan Discharge Plan Patient Disposition: Home Provider Discharge Comment: You were admitted to the hospital with a bleeding stomach ulcer. This was fixed with surgical endoscopy. Please follow up with general surgery or your GI physician for results and possible repeat endoscopy. Continue PPI twice daily for at least 1 month. Please try and follow up with PCP to recheck anemia labs in a couple of weeks and consider starting iron if you're still anemic and bowel movements have returned to normal. Discharge orders & Medications Prescriptions: New omeprazole 40 mg capsule,delayed release(DR/EC) 40 mg PO BID 30 Days Qty: 60 0RF Continued estrogens-methyltestosterone 0.625-1.25 mg tablet 1 tab PO QTUTHSU 0RF Label Comments: take 1 tablet by mouth FIVE DAYS A WEEK acetaminophen 500 mg Tablet 1,000 mg PO DAILY 0RF alprazolam 0.5 mg tablet 0.5 mg PO QD-QID 0RF Label Comments: take 1 tablet by mouth four times a day hydromorphone 2 mg tablet 2 mg PO PRN PRN (Reason: Pain (Scale Score 4-6)) 0RF Label Comments: 1/2 tablet by mouth every 2 to 4 hours if needed for LEG PAIN MAX OF 112 IN 28 DAYS lisinopril 10 mg tablet 10 mg PO DAILY 0RF Label Comments: take 1 tablet by mouth once daily metoprolol tartrate 50 mg tablet 50 mg PO BID 0RF Label Comments: take 1 tablet by mouth twice a day digoxin 125 mcg (0.125 mg) tablet 125 mcg PO PRN PRN (Reason: afib) 0RF Label Comments: take 1/2 to 1 tablet by mouth once daily HOLD FOR PULSE EQUAL TO OR LESS THAN 60 Rx Instructions: Pt states she only takes when she has afib and usually only takes 1/2 a pill duloxetine 60 mg capsule,delayed release(DR/EC) 60 mg PO DAILY 0RF Label Comments: take 1 capsule by mouth once daily Imodium 2 tab PO DAILY 0RF Discontinued warfarin 1 mg tablet 5 mg PO BEDTIME 0RF Label Comments: take 5 tablets by mouth 6 days A WEEK and 4 tablets 1 day PER WEEK Follow up/Referrals: Tim Olmedo MD [Primary Care Provider] - Diet/Activity/Treatments Diet: Diet as Tolerated Activity: As tolerated Visit Report/Discharge Packet Instructions: DI for Gastric Ulcer, DI for Hiatal Hernia Discharge Data Primary Care Provider: Tim Olmedo Quality VTE Deep Vein Thrombosis/Pulmonary Embolism Present on Admission: No
[2021-05-12] MEDS: DULOXETINE 30 MG CAPSULE 60 MG PO (09:14)
[2021-05-12] MEDS: NITROFURANTOIN ER 100 MG CAPSULE PO (09:14)
[2021-05-12] MEDS: SODIUM CHLORIDE 0.9% FLUSH 10 ML IV (09:14)
[2021-05-12] MEDS: METOPROLOL IR 50 MG TABLET PO (09:15)
--- NOTE | 2021-05-12 11:21 | PC.NURSE ---
Went over dc meds and instructions with patient, questions answered. Patient taken via to vehicle driven by friend. Wallet given back to patient,.
== END 2021-05-12 11:22 | disposition home or self-care (01) | DRG 377 ==
LOC: ED 21:57 → AC 22:04
PROVIDERS: Emergency Medicine; Internal Medicine; Surgery; Admitting Provider Nurse Practitioner Family; Emergency Provider Emergency Medicine; PCP Internal Medicine Gastroenterology; Referring Provider Emergency Medicine; Visit Provider Nurse Practitioner Family
PROC: 0DJ08ZZ Inspection of Upper Intestinal Tract, Via Natural or Artificial Opening Endoscopic (ICD-10-PCS; CPT 43235; principal; 2021-05-09 11:15)
DX: K25.4 Chronic or unspecified gastric ulcer with hemorrhage (principal); I21.A1 Myocardial infarction type 2; I48.20 Chronic atrial fibrillation, unspecified; D62 Acute posthemorrhagic anemia; D68.32 Hemorrhagic disorder due to extrinsic circulating anticoagulants; N30.00 Acute cystitis without hematuria; T45.515A Adverse effect of anticoagulants, initial encounter; I10 Essential (primary) hypertension; F32.A Depression, unspecified; F41.9 Anxiety disorder, unspecified; Z79.01 Long term (current) use of anticoagulants
CPT/HCPCS: 36415; 36430; 43235; 80048; 80053; 81001; 82962; 83735; 84484; 85014; 85018; 85025; 85610; 85730; 86850; 86900; 86901; 86927; 87077; 87086; 87186; 87338; 87493; 87635; 93005; 93010; 94760; 96361; 96374; 97116; 97161; 97530; 99232; 99285; 99291; C9803; P9016; C9113; J0171; J1160; J1170; J1200; J1940; J2060; J2405; J2704; J3010; J7168

== ENCOUNTER 2024-04-12 10:33 | Inpatient (IN) | payer MEDICARE, OTHER, SELFPAY ==
[2021-05-08 22:52] VITALS: BMI 30.2
[2024-03-30 12:41] VITALS: BMI 31.0
[2024-04-12] VITALS (13 sets, daily range): BP systolic 113–173; BP diastolic 37–88; PULSE 61–81; RESP 12–19; TEMP 36.2–36.6; O2SAT 94–98; BMI 30.4
--- NOTE | 2024-04-12 06:00 | DI.RAD.S_ITS ---
PROCEDURE: XR HIP W PEL IF DONE LT 2V INDICATIONS: florin. TECHNIQUE: AP pelvis and lateral view of the hip acquired. COMPARISON: [facility], CR, XR HIP W PEL IF DONE LT 2V, 04/12/2024, 15:07. FINDINGS: Bones: Remote avulsion fracture of the lateral right bony acetabulum appreciated. SI and hip joints: Bilateral hip prostheses are near anatomic aligned without loosening or infection. Both SI joints are normal. Soft tissues: Left soft tissue swelling appreciated compatible with postoperative state. IMPRESSION: Bilateral hip prostheses unremarkable. Dictated by: Obi Castro M.D. on 04/13/2024 at 9:38 Approved by: Obi Castro M.D. on 04/13/2024 at 9:39
[2024-04-12] MEDS: FAMOTIDINE 20 MG/2 ML VIAL IV (11:29)
[2024-04-12] MEDS: CELECOXIB 200 MG CAPSULE PO (11:29)
[2024-04-12] MEDS: ACETAMINOPHEN 325 MG TABLET 975 MG PO (11:29)
[2024-04-12] MEDS: LACTATED RINGERS 1,000 ML 42 ML IV ×2 (12:30→15:56)
--- NOTE | 2024-04-12 13:22 | PM.PREOP ---
Pre-operative Note Interval Note History & Physical reviewed/Exam performed by Physician: Yes Changes to H&P: No
[2024-04-12] MEDS: CEFAZOLIN 2 GM/100 ML PREMIX 100 ML IV ×2 (14:00→21:39)
[2024-04-12] MEDS: TRANEXAMIC ACID 1,000 MG VIAL 2000 MG INJ ×2 (14:20→15:09)
--- NOTE | 2024-04-12 14:27 | SUR.OPER ---
Supine on padded [place] table with bilateral legs secured in padded positioning boots and suspended in positioning spars, operative leg in traction per surgeon. Head on one pillow. Bilateral arms secured on padded armboard <90 degrees abduction. Padded perineal post in place per surgeon.
--- NOTE | 2024-04-12 15:15 | DI.RAD.S_ITS ---
PROCEDURE: XR HIP W PEL IF DONE LT 2V INDICATIONS: LEFT ACETABULAR COMPONENT REPLACEMENT TECHNIQUE: To views of the hip were acquired. COMPARISON: [facility], CR, XR PELVIS WITH LATERAL HIP LEFT, 02/02/2024, 14:31. [facility], CR, XR HIP W PEL IF DONE LT 2V, 04/12/2024, 15:37. Findings and impression: Fluoroscopic images were obtained for left hip arthroplasty revision. Please see operative note for full details. Dictated by: Rancho Suazo M.D. on 04/12/2024 at 17:28 Approved by: Rancho Suazo M.D. on 04/12/2024 at 17:29
--- NOTE | 2024-04-12 15:35 | PM.OP.1 ---
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 52 mm OD, 45 mm ID [place] Dual Mobility Insert 2. 22 mm +4 Ceramic Femoral Head 3. 45/22 Dual Mobility Liner Procedure summary: I had previously seen this 84-year-old female patient for evaluation of her hip proximally year ago. She re-presented with obvious changes in the position of her femoral head relative to her acetabulum which I took as an indication of polyethylene liner failure. That was what I found during today's procedure. The polyethylene insert had come dissociated and was resting inferiorly in the capsule. There was itching on the outer surface of the metal head that had been used previously and mild metallic debris. The locking mechanism of the cup had not been damaged and I was able to insert a dual mobility liner which seated appropriately. The old femoral head was a +1.5 32 mm head so I upsized to a +4 head for the dual mobility head that was utilized. This was a 22 mm inner diameter head as a 28 mm head only becomes an option in this system with a 54 mm cup, and the patient's cup was a 52 mm. Stability was appropriate with all trialed parameters at the conclusion of the procedure. Procedure in detail: This 84-year-old female patient was seen and evaluated for failure of the polyethylene insert of her total hip arthroplasty which had been placed remotely by Dr. Bundy in [place]. She had a [place] construct and I made plans for a head liner exchange with conversion to dual mobility with a possible acetabular component exchange should I find damage to the locking mechanism of the acetabular component. She was counseled extensively regarding the risks and benefits of surgery. She received additional education via online educational materials provided on [employer] which are public only accessible. She was met in the preoperative holding area the day of surgery and all questions were addressed from her and her caregiver. Informed consent was signed. The operative side, the left side, was marked with my initials. She was brought back to the operating room and general anesthesia was induced. She was prepped and draped in the usual sterile fashion. All bony prominences were padded. A time-out procedure was performed verifying the correct patient, surgical site, and medical comorbidities. A physician electrician station assistant was utilized throughout the procedure. The physician electrician station assistant assisted with positioning, retracting, wound closure, and without her assistance the procedure would have been much more time consuming. A direct anterior approach to the hip was utilized. Dissected into the TFL/rectus interval and identified the crossing vessels in the region. I coagulated these. I placed retractors over the superior and inferior femoral neck around the capsule and placed an additional retractor up onto the anterior wall of the acetabulum. Made a capsulotomy in line with the femoral neck of the previous implant and dissected scar from around the implant. I did note some metallic debris in the hip capsule upon entering it. I placed retractors intracapsularly and further dissected away scar. I noted at this point in time that the polyethylene liner had obviously dissociated as it was sitting in the inferior aspect of the hip capsule as pictured above. I was able to remove this with a bone hook and then inspected it to determine the sizes of the prior construct. This indicated that it was a 52 mm cup with a neutral liner. The liner had obviously been deformed, either from the positioned it was sitting in after it had dissociated from the acetabular component or as the cause of the dissociation. The liner had an ovoid shape showing obvious deformation. That is pictured above. I then placed the hip in slight internal rotation and traction and impacted the cobalt chromium head into the acetabular component to dissociated from the trunnion. I then dislocated the hip using a bone hook and removed the head. I placed the trunnion posteriorly and placed a retractor to hold it in place as well as an another retractor on the anterior wall of the acetabulum. With the acetabular component exposed I tested it for stability and found that it was stable. I closely inspected the internal aspect of the cup and did not find any signs of deformation which would eliminate the use of the cup. The patient had had no instability following her prior total hip arthroplasty and the abduction and anteversion angles were appropriate so I kept the cup. I dissected all scar away from the locking ring to ensure there was no soft tissue interference with the liner and impacted into place a modular dual mobility liner for 52 mm cup. I had inspected the head and found that it was a +1.5 head so I planned to upsized by 1 head size for this revision surgery. I therefore opened and assembled a dual mobility head with a 22 mm +4 inner head. A titanium sleeved head was not available in the 22 mm heads that corresponded to the 52 mm cup for the modular dual mobility articulation so I utilized a ceramic head rather than a metal head so as to avoid any sort of metallosis issues. I externally rotated, extended, and adducted the operative side and exposed the trunnion. I inspected the femoral stem and found that it was well fixed. I cleaned and dried the trunnion. I impacted into place the dual mobility head. I removed all retractors, returned the hip to neutral extension, and reduced it. I manually tested hip stability by maximally externally rotating the hip. I was able to externally rotate to 120? without any instability or subluxation. I did a 45 degree drop test and likewise found no instability. I obtained AP pelvis imaging to evaluate leg lengths and found that it was not grossly long despite the increased head size that I had placed during the procedure today. I obtained an AP hip images well found no concerning features on this. The wound was bathed in a dilute mixture of Betadine and peroxide. A mixture of ropivacaine epinephrine clonidine and Toradol was infiltrated throughout the wound. The wound was closed using a combination of Vicryl Stratafix and Monocryl sutures. Surgical glue and a soft dressing placed. The patient was awoken from anesthesia and brought to the recovery room with no immediate apparent complications. Post-operative Plan for aftercare: -weightbearing as tolerated -anterior hip precautions -follow up in 2 weeks for wound check -anticipate discharge home tomorrow. Patient will stay overnight tonight -restart home anticoagulants 24 hours postoperatively
[2024-04-12] MEDS: OXYCODONE IR 5 MG TABLET PO ×2 (16:03→21:38)
[2024-04-12] MEDS: LACTATED RINGERS 1,000 ML 100 ML IV ×2 (18:43→23:05)
[2024-04-12] MEDS: ACETAMINOPHEN 325 MG TABLET 650 MG PO ×2 (18:43→22:55)
[2024-04-12] MEDS: ASPIRIN EC 81 MG TABLET PO (21:38)
[2024-04-12] MEDS: METOPROLOL IR 50 MG TABLET PO (21:38)
[2024-04-12] MEDS: DOCUSATE 100 MG CAPSULE PO (21:38)
[2024-04-12] MEDS: ALPRAZolam 0.25 MG TABLET PO (21:59)
[2024-04-12] MEDS: IBUPROFEN 600 MG TABLET PO (22:55)
[2024-04-13] MEDS: ALPRAZolam 0.25 MG TABLET PO ×3 (03:18→10:56)
[2024-04-13] MEDS: OXYCODONE IR 5 MG TABLET PO ×2 (03:18→09:15)
[2024-04-13] MEDS: ACETAMINOPHEN 325 MG TABLET 650 MG PO (05:27)
[2024-04-13] MEDS: CEFAZOLIN 2 GM/100 ML PREMIX 100 ML IV (05:27)
[2024-04-13] MEDS: IBUPROFEN 600 MG TABLET PO (05:27)
[2024-04-13 05:58] LABS: Hematocrit 32.3 % (36-46); Hemoglobin 10.2 g/dL (12.0-16.0)
[2024-04-13 09:00] VITALS: BP 181/90; PULSE 81; RESP 21; TEMP 36.8; O2SAT 98
[2024-04-13] MEDS: ASPIRIN EC 81 MG TABLET PO (09:14)
[2024-04-13] MEDS: DULOXETINE 30 MG CAPSULE 60 MG PO (09:14)
[2024-04-13] MEDS: METOPROLOL IR 50 MG TABLET PO (09:14)
--- NOTE | 2024-04-13 09:21 | P.DS_ITS ---
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 Bundy in [place]. She had a Depuy construct and Dr. Shahid made plans for a head liner exchange with conversion to dual mobility with a possible acetabular component exchange should he find damage to the locking mechanism of the acetabular component. She was counseled extensively regarding the risks and benefits of surgery. She received additional education via online educational materials provided on 115 network disks which are public only accessible Discharge Providers Provider Date of admission: 04/12/24 10:33 Discharge Date: 04/13/24 Primary care physician: Edgar Stephenson MD Consults: 04/12/24 06:00 Consult to Anesthesiology Routine Comment: Consulting Provider: Anesthesiologist Reason for consultation: Regional block for post operative pain control 04/12/24 17:06 Consult to Discharge Planning Routine Comment: Consult to Occupational Therapy Evaluate & Treat Comment: Physician Instructions: Evaluate and treat Consult to Physical Therapy Evaluate & Treat Comment: Physician Instructions: post op ROME protocol Discharge provider: Reji Valderrama PA-C Summary Hospital Course 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 52 mm OD, 45 mm ID [place] Dual Mobility Insert 2. 22 mm +4 Ceramic Femoral Head 3. 45/22 Dual Mobility Liner Procedure summary: Dr. Shahid had previously seen this 84-year-old female patient for evaluation of her hip proximally year ago. She re-presented with obvious changes in the position of her femoral head relative to her acetabulum which Dr. Shahid took as an indication of polyethylene liner failure. That was what Dr. Shahid found during today's procedure. The polyethylene insert had come dissociated and was resting inferiorly in the capsule. There was itching on the outer surface of the metal head that had been used previously and mild metallic debris. The locking mechanism of the cup had not been damaged and Dr. Shahid was able to insert a dual mobility liner which seated appropriately. The old femoral head was a +1.[address] Shahid upsized to a +4 head for the dual mobility head that was utilized. This was a 22 mm inner diameter head as a 28 mm head only becomes an option in this system with a 54 mm cup, and the patient's cup was a 52 mm. Stability was appropriate with all trialed parameters at the conclusion of the procedure. Status at Discharge Cognitive/behavioral status at discharge: oriented Functional status at discharge: uses cane/walker Overall status at discharge: patient is progressing back to baseline Time Spent with Patient Time spent: Less than 30 minutes Exam Vital Signs (past 8 hours): Oxygen Delivery Method Room Air Oxygen Flow Rate 0 Narrative Exam Narrative: Patient found lying in bed with nursing staff. Patient has able to ambulate with assistance. Currently has angella-wick placed. 5/5 strength in hip flexors, quadriceps, hamstrings, DF, PF, EHL bilaterally. Sensation to light touch intact throughout BLE. Calves soft, compressible, nontender. Dressing placed intraoperatively CDI. Resp Effort & Inspection: normal respiratory effort and able to speak in complete sentences Objective Labs 04/13/24 05:33 Labs: Laboratory Results - last 24 hr 04/13/24 05:33 Hgb 10.2 L Hct 32.3 L PFSH Medical History (Updated 03/30/24 @ 13:43 by Eilzabeth Toth RN) Neck fracture (2023) Diabetes Anxiety Chronic anticoagulation Hypoglycemia COVID-19 virus infection Essential hypertension Atrial fibrillation GI bleed Surgical History (Updated 03/30/24 @ 13:44 by Elizabeth Toth RN) Hx of bilateral cataract extraction History of bilateral hip arthroplasty History of bilateral knee arthroplasty Family History Mother Depression Father Heart attack Social History household members: caregiver Smoking Status: Never smoker alcohol intake: never Discharge Assessment & Plan Assessment and Plan Assessment: Revision left total hip arthroplasty consisting of head and liner exchange and conversion to dual mobility articulation Plan of Treatment: Discharge to home. ? Anterior Hip Pre-cautions. Ambulate and weight bear as tolerated with assistive devices. ? Initiate Eliquis 5 mg b.i.d. 24 hours after surgery for DVT prevention. ? Baseline pain relief with acetaminophen 500mg every 4 hours as needed Patient has been prescribed oxycodone 5 mg every 4 hours as needed for breakthrough pain. ? Patient will need to call [facility] to initiate physical therapy in the next 5-10 days. ? Keep dressing clean and dry. Keep dressing on until first office visit. If dressing becomes dirty or disrupted, replace with appropriate sized dressing. Follow up in clinic in 2 weeks for wound check. Contact clinic if there are any questions or concerns. Discharge Plan Discharge Plan Patient Disposition: Home Provider Discharge Comment: DC pending PT approval Discharge orders & Medications Prescriptions: Continued acetaminophen 500 mg Tablet 1,000 mg PO DAILY alprazolam 0.5 mg tablet 0.25 mg PO QID Patient Comments: take 1 tablet by mouth four times a day metoprolol tartrate 50 mg tablet 50 mg PO BID duloxetine 60 mg capsule,delayed release(DR/EC) 60 mg PO DAILY Patient Comments: take 1 capsule by mouth once daily Eliquis 5 mg Tablet 5 mg PO BID tramadol 100 mg Tablet 50 mg PO QID PRN (Reason: Chronic pain) loperamide 2 mg Capsule 2 mg PO BEDTIME Follow up/Referrals: Edgar Stephenson MD [Primary Care Provider] - Diet/Activity/Treatments Diet: Diet as Tolerated Activity: Weightbearing as tolerated. Anterior hip precautions. Cold/Heat Therapy: Ice to hip as needed for pain. Skin/Wound/Dressing Care Report to your healthcare provider any signs of infection, such as:: chills, fever, night sweats, unusual drainage and unusual redness Dressing: May shower. Leave dressing in place until follow up in office. No bathing or otherwise soaking incision. Call the office if the dressing becomes saturated inside. Visit Report/Discharge Packet Instructions: DI for Hip Replacement Stand Alone Forms: Patient Portal/API, Stroke Signs & Symptoms Discharge Data Primary Care Provider: Edgar Stephenson Quality VTE Deep Vein Thrombosis/Pulmonary Embolism Present on Admission: No
--- NOTE | 2024-04-13 09:40 | PT.IIE ---
Current Diagnoses Broken internal joint prosthesis, unspecified site, initial encounter (04/12/24) Surgery Performed Operation Date: 04/12/24 10:45 Actual Procedures p Left total hip arthroplasty head-liner exchange with possible acetabular component exchange(Left) - Christopher Shahid MD Surgical History (Last Updated 03/30/24 @ 13:44 by Elizabeth Toth, RN) History of bilateral hip arthroplasty History of bilateral knee arthroplasty Hx of bilateral cataract extraction Medical History (Last Updated 03/30/24 @ 13:43 by Elizabeth Toth, RN) Anxiety Atrial fibrillation Chronic anticoagulation COVID-19 virus infection Diabetes Essential hypertension GI bleed Hypoglycemia Neck fracture (2023) Physical Therapy Inpatient Evaluation/Re-Eval M1 PT/OT-IP Prior Functional Status Start: 04/13/24 14:57 Freq: NEEDED Status: Active Protocol: Document 04/13/24 09:40 AB (Rec: 04/13/24 15:12 AB [id number]) Medical Review Prior Functional Status Medical History Reviewed Yes Communication pt is able to make her needs known. Mobility and Gait tp stated that she was modified independent with all mobilities and ambulation using either her 4WW or SPC depending on how she feels Activities of Daily Living and IADL's pt reports primarily performing her own bathing ( sponge bath) and dressing at home and states that she sometimes needs help. pt manages her own mediation and money and enjoys spending time outside and on the computer. pt has assistance with housekeeping, driving, grocery shopping, and cooking/meals on wheels. Social History Household Members caregiver,none Living Arrangements House Number of Floors (Floors) Two Floors Number of Stairs To Enter/Railing? pt stays on main level of the house 4 steps B rails to enter Home Environment High Toilet,Tub/Shower Home Equipment Front Wheel Walker,Four Wheel Walker,Straight Cane,Customer Retention Specialist Employment Status Retired Additional Social History Comment adjustable bed, pt performs sponge baths only. pt plans to go home and has hired a caregiver to stay with her to assist her for ~ 4 weeks M2 PT-IP Current Condition Start: 04/13/24 14:57 Freq: NEEDED Status: Active Protocol: Document 04/13/24 09:40 AB (Rec: 04/13/24 15:12 AB [id number]) Physical Therapy Current Condition Current Condition Evaluation Date 04/13/24 Treatment Diagnosis s/p L ROME revision anterior; difficulty in walking Onset Date 04/12/23 M3 PT-IP Subjective Start: 04/13/24 14:57 Freq: NEEDED Status: Active Protocol: Document 04/13/24 09:40 AB (Rec: 04/13/24 15:12 AB [id number]) Subjective Physical Therapy Visit Type Type Initial Evaluation Visit Start Time 09:40 Visit Stop Time 10:35 Number of SENIOR RESIDENT CARE DIRECTOR Visits 0 Physical Therapy Visit Comments Patient Comments agreeable to do PT Therapy Pain Assessment Pain Present Pain Present Denied Pain M4 PT-IP Mobility and Gait Start: 04/13/24 14:57 Freq: NEEDED Status: Active Protocol: Document 04/13/24 09:40 AB (Rec: 04/13/24 15:12 AB [id number]) PT-Bed Mobility Assessment Supine to Sit Supine to Sit Standby Assistance,Bedrails Sit to Supine Sit to Supine Standby Assistance,Bedrails PT-Transfer Assessment Sit to and From Stand Sit to and from Stand Standby Assistance,Contact Guard Assistance,1 Person Assistance,Use of Upper Extremities Equipment Transfer Assistive Device Gait Belt,4 Wheeled Walker Orthotic/Prosthetic Devices or Brace: No Transfers Transfer Destination Bed,Toilet Transfer Technique ambulated Transfer Ability Level of Assist Standby Assistance,Contact Guard Assistance,1 Person Assistance,Use of Upper Extremities Comments Mobility Comments pt with OT finishing up. PT took over pt's care. obtained PLOF and home setup. educated pt regarding hip precautions. post-op folder provided and reviewed contents. completed sit to stand CGA from bedside commode and ambulated towards EOB but pt then stated that she needs to use the toilet and ambulated to the toilet using 4WW SBA to CGA. able to manage brief/pants CGA. completed sit to stand CGA using grab bar to assist. pt ambulated out to the hallway using 4WW SBA to CGA. needing standing rest breaks in between. completed up/down steps using B rails CGA. pt needing cues for techniques and safety. pt ambulated back to her room using 4WW SBA to CGA. pt sat on EOB. completed sit<>supine SBA and cues. reviewed precautions, safety and stair climbing techniques. stated that her caregiver will be able to assist her. positioned pt on the chair. call light and table placed within reach. Gait Assessment Gait Gait Assistance Required: Standby Assistance,Contact Guard Assist Distance (Feet) 125 Able to Maintain Weight Bearing Status Yes During Gait Assistive Devices Assistive Device Gait Belt,4 Wheeled Walker Orthotic/Prosthetic Devices or Brace: No Gait Deviations General Gait Pattern Antalgic,Decreased Feet Clearance,Step-to Gait Factors Limiting Gait Function Factors Limiting Gait Function Decreased Activity Tolerance, Decreased Strength,Difficulty Following Directions,Limited Range of Motion,Poor Balance, Poor Safety Awareness Stair Climbing Assessment Evaluation Level of Assist On Stairs Contact Guard Assistance Devices Stair Climbing Assistive Devices Left Railing,Right Railing Technique/Endurance Stair Climbing Direction Ascend and Descend Stair Climbing Technique Step to Step Number of Steps Climbed 3 Query Text: Stair Climbing Set # Repetitions (reps) 1 PT-Balance Assessment Sitting Balance and Reactions Static Sitting Balance Ability Normal Dynamic Sitting Balance Ability Good Standing Balance and Reactions Static Standing Balance Ability Good Dynamic Standing Balance Ability Fair Device Used 4WW M5 PT-IP Objective Assessments Start: 04/13/24 14:57 Freq: NEEDED Status: Active Protocol: Document 04/13/24 09:40 AB (Rec: 04/13/24 15:12 [id number]) Orientation Orientation/Cognition Level of Alertness Alert Orientation Name,Situation Language Function Ability Hard of Hearing Safety Awareness Decreased Safety Awareness Memory Description Short Term Impaired Gross Range of Motion Lower Extremity ROM Assessment Within Functional Limits Strength Lower Extremity Strength Assessment Left Impaired Hip 3-/5 Knee 4-/5 Sensation Assessment Sensation Gross Sensation WNL Muscle Tone Muscle Tone WNL Yes M6 PT-IP Treatment Start: 04/13/24 14:57 Freq: NEEDED Status: Active Protocol: Document 04/13/24 09:40 AB (Rec: 04/13/24 15:12 [id number]) Physical Therapy Treatment Education Education Provided Precautions,Weight Bearing Status,Post-Op Packet,Safety M7 PT-IP Assessment and Plan Start: 04/13/24 14:57 Freq: NEEDED Status: Active Protocol: Document 04/13/24 09:40 AB (Rec: 04/13/24 15:12 [id number]) PT Summary Assessment and Plan Potential Rehabilitation Potential Fair Status of Condition at Evaluation Evolving Summary Impairments Pain,ROM,Strength,Balance, Coordination,Sensation,Tone, Cognition,Bed Mobility, Transfers,Gait,Activity Tolerance Assessment Summary pt is an 84 y/o F s/p L ROME revision anterior approach POD 1. pt with anterior hip precautions LLE and is wBAT. pt requiring SBA to CGA with mobility using 4WW and will have her caregiver to assist her at home. pt has outpt PT set up. Goals Bed Mobility Goal Independent Transfer Goal Independent,Front Wheeled Walker Gait Goal Independent,Front Wheel Walker Gait Distance 200 Other Goals up/down 4 steps B rails SBA Days to Meet Goals 5 Frequency of Treatment Frequency Of Treatment Twice a Day Treatment Plan Physical Therapy Treatment Plan Bed Mobility Training,Transfer Training,Gait Training, Therapeutic Exercise,Balance Retraining,Post Op Education, Discharge Planning,Hot or Cold Pack,Neuromuscular Re-ed, Coordination Retraining,Manual Therapy Precautions Anterior Hip Precautions No Hip Extension,No Hip External Rotation Weight Bearing Status Weight Bearing Status Weight Bear as Tolerated Allowed Weight Bearing Amount (enter % LLE WBAT or #) (%) Recommendations To Nursing Amount of Assist Needed 1 Person Assist Discharge Recommendations PT Discharge Recommendations Home with Assistance, Outpatient PT Transportation Needs at Discharge Private Vehicle
--- NOTE | 2024-04-13 12:40 | PC.NURSE ---
Discharge Note Patient A&O, VSS, RA, no complaints of pain/discomfort. Discharge packet reviewed with patient, all questions/concerns addressed. PIV discontinued. Patient able to dress self and pack all belongings. Patient reminded to pick and shovel worker prescriptions at preferred pharmacy. Patient taken down via wheelchair to POV.
--- NOTE | 2024-04-13 13:08 | OT.IP.EVAL ---
Current Diagnoses Broken internal joint prosthesis, unspecified site, initial encounter (04/12/24) Surgery Performed Operation Date: 04/12/24 10:45 Actual Procedures p Left total hip arthroplasty head-liner exchange with possible acetabular component exchange(Left) - Christopher Shahid MD Past Medical History (Last Updated 03/30/24 @ 13:43 by Elizabeth Toth, RN) Anxiety Atrial fibrillation Chronic anticoagulation COVID-19 virus infection Diabetes Essential hypertension GI bleed Hypoglycemia Neck fracture (2023) Surgical History (Last Updated 03/30/24 @ 13:44 by Elizabeth Toth, RN) History of bilateral hip arthroplasty History of bilateral knee arthroplasty Hx of bilateral cataract extraction Occupational Therapy Inpatient Evaluation/Re-Eval M1 PT/OT-IP Prior Functional Status Start: 04/13/24 12:49 Freq: NEEDED Status: Active Protocol: Document 04/13/24 12:49 AMARI (Rec: 04/13/24 13:08 DEBBIEWADOUG [id number]) Medical Review Prior Functional Status Medical History Reviewed Yes Communication pt is able to make her needs known. Mobility and Gait pt reports amb with 4WW at home both indoor and outdoor. pt on occasion rides riding leadite heater around her yard when the weather is nice. Activities of Daily Living and IADL's pt reports primarily performing her own bathing ( sponge bath) and dressing at home and states that she sometimes needs help. pt manages her own mediation and money and enjoys spending time outside and on the computer. pt has assistance with housekeeping, driving, grocery shopping, and cooking/meals on wheels. Social History Household Members caregiver Living Arrangements House Number of Floors (Floors) Two Floors Number of Stairs To Enter/Railing? Main floor living. 4 stairs to enter, with railing. Home Environment High Toilet Home Equipment Four Wheel Walker,Straight Cane,Tree Feller Employment Status Retired Additional Social History Comment adjustable bed, pt performs sponge baths only. M2 OT-IP Current Condition Start: 04/13/24 12:49 Freq: Status: Active Protocol: Document 04/13/24 12:49 AMARI (Rec: 04/13/24 13:08 DEBBIEWADOUG [id number]) Occupational Therapy Current Condition Current Condition Evaluation Date 04/13/24 Treatment Diagnosis L THR anterior approach Diagnosis Onset Date 04/12/24 Post Operative Precautions Anterior Hip Precautions No Hip Extension,No Hip External Rotation Weight Bearing Status Weight Bearing Status Weight Bear as Tolerated M3 OT- IP Subjective and Pain Start: 04/13/24 12:49 Freq: Status: Active Protocol: Document 04/13/24 12:49 DEBBIEDL (Rec: 04/13/24 13:08 [facility] [id number]) OT- Subjective Occupational Therapy Visit Type Type Initial Evaluation Visit Start Time 09:05 Visit Stop Time 09:57 Notes Pt sitting EOB with nsg present on entrance of OT. Pt agreeable to participating in skilled OT eval. Occupational Therapy Visit Comments Patient Comments Pt reports that she has a hired therapeutic assistant that will be staying with her for one week on d/c. Pt is planning to have outpt PT. OT Pain Assessment Pain When Pain Assessed At Rest Pain Present Pain Present Denied Pain M4 OT- IP ADL's Start: 04/13/24 12:49 Freq: Status: Active Protocol: Document 04/13/24 12:49 DEBBIEREJIAMANDALINH (Rec: 04/13/24 13:08 [facility] [id number]) OT [id number] General Evaluation Self-Feeding Ability Independent OT ADL-Grooming General Evaluation Grooming Ability Standby Assistance Areas Needing Assistance Retrieving/Set-up of Grooming Items Comments OT Grooming Comments performed sink side OT ADL-Oral Care General Eval Oral Care Ability Standby Assistance Areas of Assistance Retrieving/Set-Up of Items Comments Oral Care Comments performed sink side OT ADL-Dressing General Eval Upper Body Dressing Ability Standby Assistance Lower Body Dressing Ability Minimal Assistance Areas Needing Assistance Retrieving/Set-up of Clothing, Underpants/Brief,Pants/Shorts, Socks Assistive Devices Dressing Assistive Devices Tree Feller Comments OT Dressing Comments pt requires set up of items. pt needed some assistance to start pants/under mccord on LEs even while using cosmetics machine operator. pt needed assistance to doff socsk. OT ADL-Toileting General Evaluation Toileting Ability Standby Assistance Devices Toileting Assistive Devices Commode Comments OT Toileting Comments pt performs safely with set up of toilet paper OT ADL-Bathing Bathing Type Bathing Type Sponge Bath General Evaluation Bathing Ability Minimal Assistance Areas Needing Assistance Wash/Dry Lower Extremities Comments OT Bathing Comments pt performs sitting on BSC sink side M5 OT- IP IADL's Start: 04/13/24 12:49 Freq: Status: Active Protocol: Document 04/13/24 12:49 AMARI (Rec: 04/13/24 13:08 [facility] [id number][facility] OT-Instrumental Activities of Daily Living Home Safety Awareness Awareness of Need for Assistance at Home Good Awareness Medication Management Medication Management No Deficits Identified Money Management Money Management No Deficits Identified Meal Preparation Meal Preparation Caregiver Provides Supervision Appliance Technician Appliance Technician Caregiver Provides Assist Driving Driving Caregiver Provides Assist M6 OT- IP Functional Cognition Start: 04/13/24 12:49 Freq: Status: Active Protocol: Document 04/13/24 12:49 AMARI (Rec: 04/13/24 13:08 [facility] [id number]) Cognitive Factors Limiting Selfcare Function Cognitive Ability Level of Alertness Alert Patient Orientation Name,Age,Birthday,Month,Date, Year,Day of Week,Place, Situation Attention Span Ability Capable of Focused Attention, Capable of Sustained Attention Ability to Follow Commands Able to Follow Multi-Step Commands Memory Description No Deficits Noted Safety Awareness No Deficits Noted Problem Solving Ability No deficits Noted Executive Function Ability No Deficits Noted Abstract Thinking Ability No Deficits Noted OT- Vision and Hearing OT- Hearing Assessment OT- Hearing Assessment WFL OT- Vision Assessment Visual Acuity Glasses All The Time M7 OT- IP Mobility and Balance Start: 04/13/24 12:49 Freq: Status: Active Protocol: Document 04/13/24 12:49 AMARI (Rec: 04/13/24 13:08 DEBBIEWADOUG [id number]) OT- Bed Mobility Assessment Scooting Scooting to Edge of Bed Standby Assistance OT-Transfer Assessment Transfers Transfer Ability Standby Assistance Technique Transfer Destination Bedside Commode Transfer Technique Stand Step Pivot Devices Transfer Assistive Devices Gait Belt,Front Wheeled Walker Comments Mobility Comments pt requires vcs for hip precautions, specifically not leaving her LE behind her especially when turning. OT- Gait Assessment Gait Gait Assistance Required: Standby Assistance Distance (Feet) 20 Able to Maintain Weight Bearing Status Yes During Gait Assistive Devices Assistive Device Gait Belt,Front Wheeled Walker Comments Gait Ability Comments pt requires vcs when turning to take small steps to avoid breaking her hip precautions OT- Balance Assessment Sitting Balance and Reactions Static Sitting Balance Ability Normal Dynamic Sitting Balance Ability Normal Standing Balance and Reactions Static Standing Balance Ability Normal Dynamic Standing Balance Ability Good M8 OT- IP Objective Assessments Start: 04/13/24 12:49 Freq: Status: Active Protocol: Document 04/13/24 12:49 AMARI (Rec: 04/13/24 13:08 [facility] [id number]) OT Gross Range of Motion Upper Extremity Range of Motion Assessment Within Functional Limits OT Strength Upper Extremity Strength Assessment Within Functional Limits Hand Dimension Specification Inspector Strength Hand Dominance Right M9 OT- IP Assessment and Plan Start: 04/13/24 12:49 Freq: Status: Active Protocol: Document 04/13/24 12:49 AMARI (Rec: 04/13/24 13:08 [facility] [id number]) OT Summary Assessment and Plan Potential Rehabilitation Potential Excellent Analytic Complexity at Evaluation Low Summary OT Impairments Functional Mobility,Dressing, Bathing,Toilet Transfers Progress Towards Goals Progressing Toward Goals Assessment Summary Pt is an 84 yo F with recent revision of ROME anterior approach. Pt lives alone in multilevel home, but lives on first floor only. Pt has 4 dogs living with her. Pt has a paid caregiver who assists with IADLS and community mobility. Pt will have CG staying with her for 1 week on d/c. Pt demonstrated functional mobility with S and BADLs with S to min A. Pt would benefit from outpatient PT on d/c home. Goals Dressing Goal Independent,Tree Feller Toileting Goal Independent Bathing Goal Independent Toilet Transfer Goal Independent Days to Meet Goals 5 Frequency of Treatment Frequency Of Treatment Discharge Discharge Recommendations OT Discharge Recommendations Home with Assistance, Outpatient PT Transportation Needs at Discharge Private Vehicle
--- NOTE | 2024-04-13 15:21 | CM.DANOTE ---
Initial DCP Assessment Visit Note Reviewed EMR and team rounds for status updates. Met with pt at bedside to introduce self and role, pt was found to be dressed, eating breakfast, and preparing for home d/c. Pt lives modified independently in her own home with cg assistance, a 4WW, and cane. Her cg will be transporting her home, as she's been medically cleared for home d/c. No CM assistance/resource needs are identified at this time. Payor: Medicare Attending: Dr. Shahid Discharge Planning/Care Management CM Discharge Assessment Start: 04/13/24 15:17 Freq: Status: Discharge Protocol: Document 04/13/24 15:17 DPL (Rec: 04/13/24 15:19 DPL [id number]) Discharge Planning Assessment Assigned Guidance Adviser CHRISTINE Adams Advance Directives? Yes Advance Directives on File No History Provided By Patient,Medical Record Has Patient been admitted in last 30 No days? Prior Living Arrangements House Household Members caregiver Type of transporation used prior to Relies on Others admit Independent with ADL's No: assistance w/cg and a 4WW/ cane Is patient alert and oriented? Yes Needs Assistance With Meal Prep,Home Chores / Shopping Caregiver for Another No DME Already Rented / Owned Bath Bench,Elevated Toilet Seat,FWW / Walker,Cane Comment 4WW Patient/Family Preference OP PT Therapy Barriers to Discharge No Discharge Plan Home Transportation Arrangement friend to likely transport home at d/c Referrals Initiated None needed Additional Comment Pending pt's scope and needs Whiteboard Updated in Patient Room with Yes name and ext. # of Guidance Adviser Review Status In Process Please Provide Date Initial DC 04/13/24 Assessment Was Performed Pre-Anesthesia Assessment Start: 03/30/24 12:41 Freq: Status: Discharge Protocol: Document 03/30/24 12:41 LB (Rec: 03/30/24 13:35 LB [id number]) Pre-Anesthesia Assessment PAC Comment 03/30/24 Phone assessment. Patient Information Reviewed Via Phone Assessment Assessment Completed With Patient Diagnostic Results BMP/CMP,CBC,EKG Comment 03/03/24 Outside results. Primary Care Provider Kanwal [facility] Medical Clearance Received Yes Seen Specialist in Last 12 Months Yes Specialist Seen Drum Attendant,Orthopedist Primary Language Afghan Preferred Language Afghan Document Controller Required No Height 170.18 cm Weight 89.811 kg Body Mass Index (BMI) 31.0 Hearing Ability Normal Visual Assist Glasses Dentition Type Teeth, Broken Barriers to Learning Auditory Other Aids No Hx Anesthesia Reactions No Hx Family Anesthesia Reaction No Hx Malignant Hyperthermia No Hx Blood Transfusions No Anesthesia Review Requested No Metal Turner No alcohol intake never Smoking Status Never smoker Substance Use Type [#R] does not use Musculoskeletal Symptoms Back Pain,Joint Pain History of Falling (Recent or History of Yes ) Comment Last fall July/August. Patient is completely paralyzed or No completely immobile Prosthesis or Orthotic Device Cane Mental Status Oriented to own ability Comment Will bring walker. Is patient on oxygen? No Does patient have SHEIKH/SOB No Hx Sleep Apnea No Currently Taking a Beta Sonia Yes: Metoprolol 50mg BID. Can You Climb a Flight of Stairs Without Yes SOB Hx Chest Pain No Hx SOB No Hx Syncope or Dizziness Yes: Approx 2 years ago. Anti-Coagulant Therapy Yes: Eliquis mg - hold 48hours prior to sugery. Has a Drum Attendant Yes Drum Attendant name TEGAN Garcia Cardiac Testing No Hx Pacemaker/ICD No Cardiac Clearance Received Yes Diet Type At Home Other Dysphagia No Gastrointestinal Symptoms Diarrhea Comment Soft diet. Chronic UTI No Bladder Pattern Frequency,Incontinent Urinary Catheter Present No Hx Urinary Self Catheterization No Diabetes Yes HgbA1C 6.3 Date 03/03/24 Patient No Lactating No Hx Drug Resistant Organism No Presence of External or Internal Medical Yes: Bilat hips and knees, Devices bilat IOL's. Have you had any close contact with No someone diagnosed with COVID-19? Received a COVID vaccine? No: absolutely NOT Comment Denies covid last 2 months. Lives With caregiver Current Living Arrangements House Number of Floors (Floors) Two Floors Number of Stairs To Enter/Railing? Main floor living. 4 stairs to enter, with railing. Support System Caregiver Does the Patient Have Assistance After Yes Surgery Patient Discharge Plan Description Return Home Additional comment Unsure of plan at this time. Do you have thoughts of harming yourself None or others? Comment Sometimes feels unsafe in home - doesn't know the neighbors any more. Do You Have Any Spiritual Beliefs That No May Affect Your HC Choices? Do You Have Any Cultural Practices That Yes: prefers female caregivers May Affect Your HC Choices? Emergency Contact Name Irene Brice - caregiver Emergency Contact Advance Directives? Yes Advance Directives on File No Power of Electrical Line Splicer Yes Power of Electrical Line Splicer Name Ivon Mcmanus Power of Electrical Line Splicer PAC Instructions Assistance for 24 hours post- op,Durable medical equipment, Medications to take/avoid, Nasal antibiotic,No ETOH/ petroleum product on skin DOS, NPO,Post-op transportation,Pre -surgical wash,Sensory aids, Sturdy shoes/comfortable clothes,Do not bring valuables and remove jewelry
== END 2024-04-13 12:00 | disposition home or self-care (01) | DRG 468 ==
PROVIDERS: Admitting Provider Orthopaedic Surgery Adult Reconstructive Orthopaedic Surgery; PCP Internal Medicine; Referring Provider Orthopaedic Surgery Orthopaedic Surgery of the Spine; Visit Provider Orthopaedic Surgery Adult Reconstructive Orthopaedic Surgery
PROC: 0SRS03A Replacement of Left Hip Joint, Femoral Surface with Ceramic Synthetic Substitute, Uncemented, Open Approach (ICD-10-PCS; principal; 2024-04-12 10:45)
DX: T84.021A Dislocation of internal left hip prosthesis, initial encounter (principal); E11.9 Type 2 diabetes mellitus without complications; F41.9 Anxiety disorder, unspecified; I10 Essential (primary) hypertension; Y79.2 Prosthetic and other implants, materials and accessory orthopedic devices associated with adverse incidents; Z79.01 Long term (current) use of anticoagulants; Z86.73 Personal history of transient ischemic attack (TIA), and cerebral infarction without residual deficits; Z86.79 Personal history of other diseases of the circulatory system
CPT/HCPCS: 36415; 73502; 76000; 82962; 85014; 85018; 97162; 97165; 97530; 97535; C1776; J0690; J1100; J1171; J2405; J2704; J3010; J3490

== ENCOUNTER → 2025-02-21 14:54 | Outpatient (CLI) | payer MEDICARE, OTHER, SELFPAY ==
[2024-04-12 10:49] VITALS: BMI 30.4
--- NOTE | 2025-02-21 14:56 | DI.RAD.S_ITS ---
PROCEDURE: FL BARIUM SWALLOW INDICATIONS: dysphagia COMPARISON: None. FINDINGS: Function: There is normal esophageal peristalsis. No elicited gastroesophageal reflux. There is delayed transit of a calibrated, half-inch, barium tablet through the esophagus into the stomach. There was spontaneous aspiration of a small volume of thick barium into the right bronchus with resultant coughing by the patient during the exam. Morphology: Air-contrast images demonstrate normal mucosal morphology. Single contrast views show no esophageal strictures, extrinsic mass effects, or diverticula. Limited images of the stomach demonstrate normal appearance. IMPRESSION: 1. Prolonged transit time of a calibrated 0.5 inch barium tablet in the distal esophagus without tertiary peristalsis or corkscrew esophagus. 2. Spontaneous symptomatic small volume aspiration, consider evaluation by speech pathology. Dictated by: Farhan Franklin M.D. on 02/21/2025 at 15:56 Approved by: Farhan Franklin M.D. on 02/21/2025 at 15:59
== END ==
LOC: RAD 14:55
PROVIDERS: PCP Internal Medicine; Referring Provider Student in an Organized Health Care Education/Training Program; Visit Provider Student in an Organized Health Care Education/Training Program
DX: R13.10 Dysphagia, unspecified (principal)
CPT/HCPCS: 74220